=== PATIENT | female | born 1965 | race Caucasian/White ===

== ENCOUNTER 2018-11-04 04:09 | Inpatient (IN) | payer MEDICAID ==
[2018-11-04] VITALS (13 sets, daily range): BP systolic 88–118; BP diastolic 55–79
[~2018-11-04] VITALS: Ht 167.6 cm; Wt 99.4 kg
[2018-11-04] MEDS ORDERED: ipratropium/albuterol 3ml nebule NEB ONE (04:15)
[2018-11-04] MEDS ORDERED: methylPREDNISolone sod succ 125mg/2ml vial IV ONE (04:15)
[2018-11-04] MEDS ORDERED: LORazepam 2 mg/ml vial ONE (04:22)
--- NOTE | 2018-11-04 04:23 | NUR ---
RT, F[place], AT BEDSIDE. PT SUCTIONED VIA TRACH WITH MINIMAL OUT. SATS REMAIN 77-80% DR. DORSEY AWARE AND VERBAL RECEIVED FOR ATIVAN .5 MG X1.
[2018-11-04] MEDS ORDERED: LORazepam 2 mg/ml vial IV ONE ×2 (04:30→04:40)
--- NOTE | 2018-11-04 04:40 | NUR ---
PT MORE RELAXED AFTER ATIVAN - ON VENT, SETTINGS 100% FIO2, PEEP 15, SATS UP TO 86%
[2018-11-04] MEDS ORDERED: azithromycin/NS 500mg/250ml 250 ML IV ONE (04:45)
[2018-11-04] MEDS ORDERED: cefepime 1GM/NS ADD-VANTAGE 100 ML IV ONE (04:45)
[2018-11-04] MEDS ORDERED: vancomycin/NS 1 GM ADD-VANTAGE 250 ML IV ONE (04:45)
[2018-11-04] MEDS ORDERED: FENTANYL-0.9 % NACL/PF 100 ML IV PRN (04:47)
[2018-11-04] MEDS: midazolam 100mg in NS 100ml 100 ML IV PRN (05:04)
[2018-11-04 05:11] LABS: ABG BASE EXCESS 4.1 mmol/L (-2.0-3.0); ABG OXYGEN SATURATION 77.9 % (95-98); ABG PCO2 (T) 43.3 mmHg (35.0-45.0); ABG PH (T) 7.441 (7.350-7.450); ABG PO2 (T) 44.7 mmHg (83-108); FCOHb 0.2 % (0.5-1.5); FMetHb 0.2 % (0.3-1.12); FO2Hb 77.6 % (94-100); MINUTE VOLUME 11 L/min; PATIENT TEMPERATURE 36.3; PEEP 15 cm H2O; RESPIRATORY RATE 20 b/min; RESPIRATORY RATE (OBSERVED) 22 b/min; TIDAL VOLUME 400 mL; TOTAL HEMOGLOBIN 11.7 G/dl (12.0-16.0)
--- NOTE | 2018-11-04 05:13 | NUR ---
[place] EMERY AT BEDSIDE. 2ND PIV PLACED 20 G TO L FOOT. VERSED AND FENTANYL NOW INFUSING.
--- NOTE | 2018-11-04 05:43 | NUR ---
VERSED INCREASED TO 2.5MG/HR
[2018-11-04] MEDS ORDERED: acetaminophen 650mg rectal suppository RC PRN (05:45)
[2018-11-04] MEDS ORDERED: magnesium hydroxide 30ml (MOM) UD suspension PO PRN (05:45)
[2018-11-04] MEDS ORDERED: acetaminophen 325mg tablet PO PRN ×2 (05:45)
[2018-11-04 05:47] LABS: ALANINE AMINOTRANSFERASE 23 U/L (12-78); ALBUMIN 2.9 G/DL (3.4-5.0); ALBUMIN/GLOBULIN RATIO 0.8 (1.1-1.5); ALKALINE PHOSPHATASE 74 IU/L (46-116); ANION GAP 11 (8-16); ASPARTATE AMINO TRANSFERASE 16 U/L (10-37); BILIRUBIN,TOTAL 0.4 MG/DL (0.1-1.0); BLOOD UREA NITROGEN 30 MG/DL (7-18); BUN/CREATININE RATIO 21.3 (6.6-38.0); CALCIUM 8.9 MG/DL (8.5-10.1); CHLORIDE 105 MMOL/L (99-107); CREATININE 1.41 MG/DL (0.40-0.90); GLUCOSE 103 MG/DL (70-104); POTASSIUM 3.2 MMOL/L (3.5-5.1); SODIUM 145 MMOL/L (135-145); TOTAL CARBON DIOXIDE 29.1 MMOL/L (24-32); TOTAL PROTEIN 6.6 G/DL (6.4-8.2); eGFR 39 ML/MIN
[2018-11-04] MEDS ORDERED: albuterol 2.5 MG/3 ML nebule NEB PRN (05:55)
[2018-11-04] MEDS ORDERED: DOBUTamine-DoBUTrex 500mg/D5W 250 ML IV SCH (06:00)
--- NOTE | 2018-11-04 06:02 | NUR ---
March orders the titratable dobutamine to start at 3.5mcg/hr
[2018-11-04] MEDS ORDERED: GABA600T13 PO (06:06)
[2018-11-04] MEDS ORDERED: DULO-31 PO (06:06)
[2018-11-04] MEDS ORDERED: ALLO100T PO (06:06)
[2018-11-04] MEDS ORDERED: ESCI5TAB PO (06:06)
[2018-11-04] MEDS ORDERED: FURO40TA4 IV (06:06)
[2018-11-04] MEDS ORDERED: INSU100C10 SQ (06:14)
[2018-11-04] MEDS ORDERED: RIVA10TA PO (06:14)
[2018-11-04] MEDS ORDERED: PANT-47 PO (06:14)
[2018-11-04] MEDS ORDERED: LEVO25TA2 PO (06:14)
[2018-11-04] MEDS ORDERED: LACT1CAP65 PO (06:14)
[2018-11-04] MEDS ORDERED: PRAM0.5T3 PO (06:14)
[2018-11-04] MEDS ORDERED: MONT10TA24 PO (06:14)
--- NOTE | 2018-11-04 06:15 | NUR ---
FENTANYL DRIP ENDED AND WASTED WITH 2ND RN - PER MAR NEEDED TO END THE MEDICATION SECONDARY TO PT BEING ON ZYVOX - CURRENT ORDER FOR DOBUTAMINE DRIP CAN'T BE CARRIED OUT AT THIS TIME PT DOESN'T HAVE A CENTRAL LINE.
[2018-11-04] MEDS ORDERED: LINE600I8 IV (06:17)
[2018-11-04] MEDS ORDERED: HYDR28CR14 TOP (06:17)
[2018-11-04 06:18] LABS: BASOPHILS # (AUTO) 0.1 X10'3 (0-0.2); BASOPHILS % (AUTO) 1.1 % (0-1); EOSINOPHILS # (AUTO) 0.6 X10'3 (0-0.9); EOSINOPHILS % (AUTO) 6.3 % (0-6); HEMATOCRIT 33.8 % (35.0-45.0); HEMOGLOBIN 10.5 g/dl (12.0-16.0); LYMPHOCYTES # (AUTO) 3.2 X10'3 (1.1-4.8); LYMPHOCYTES % (AUTO) 33.4 % (21-51); MEAN CORPUSCULAR HEMOGLOBIN 21.7 PG (27.0-31.0); MEAN CORPUSCULAR HGB CONC 31.2 g/dL (33.0-36.5); MEAN CORPUSCULAR VOLUME 69.7 FL (78-98); MONOCYTES # (AUTO) 0.7 X10'3 (0-0.9); MONOCYTES % (AUTO) 7.5 % (2-12); NEUTROPHILS % (AUTO) 51.7 % (42-75); PLATELET COUNT 224 X10'3 (140-440); RED BLOOD COUNT 4.85 X10'6 (4.20-5.60); RED CELL DISTRIBUTION WIDTH 25.1 % (11.5-14.5); WHITE BLOOD COUNT 9.7 X10'3 (4.5-11.0)
[2018-11-04] MEDS ORDERED: DOCU283E2 RC (06:19)
[2018-11-04] MEDS ORDERED: ACET-2119 PO (06:19)
[2018-11-04] MEDS ORDERED: HYDR-4383 PO (06:20)
[2018-11-04] MEDS ORDERED: POLY17PO10 PO (06:23)
[2018-11-04] MEDS ORDERED: ONDA4VIA6 IV (06:23)
[2018-11-04] MEDS ORDERED: LORA1TAB PO (06:23)
[2018-11-04] MEDS ORDERED: ALB0.5UD IH (06:23)
[2018-11-04] MEDS ORDERED: ATR0.5NEB IH (06:23)
--- NOTE | 2018-11-04 06:26 | NUR ---
telephone order from March to start dobutamine at 3.5mcg thru a PIV
--- NOTE | 2018-11-04 06:50 | NUR ---
ASSUMED CARE OF PATIENT. PT IS ON FI02 100 SAT 78-80% BOTH ICU AND ER MD AWARE. DOBUTAMINE STARTED IN PIV PER MD.
[2018-11-04 07:27] LABS: PLATELET ESTIMATE NORMAL
[2018-11-04 07:28] LABS: ANISOCYTOSIS 3+; HYPOCHROMASIA 2+; POLYCHROMASIA FEW
[2018-11-04 07:29] LABS: MICROCYTOSIS 2+
[2018-11-04 07:31] LABS: ELLIPTOCYTES FEW
[2018-11-04] MEDS: ipratropium/albuterol 3ml nebule NEB SCH ×5 (07:31→23:08)
[2018-11-04] MEDS ORDERED: ESOMEPRAZOLE 40 MG VIAL IV SCH (08:00)
[2018-11-04] MEDS ORDERED: furosemide 10 MG/1 ML 10ml inj IV SCH (08:00)
[2018-11-04] MEDS ORDERED: acetylcysteine 200 MG/ml 4ml vial INH SCH (09:00)
[2018-11-04] MEDS: furosemide 40mg/4ml inj IV SCH ×2 (09:43→15:34)
[2018-11-04] MEDS: heparin, porcine 5000 units/ml vial SQ SCH ×2 (09:44→19:51)
[2018-11-04] MEDS: ESOMEPRAZOLE 40 MG VIAL IV SCH ×2 (10:36→19:51)
[2018-11-04] MEDS: linezolid 600mg/300ml PREMIX 300 ML IV SCH ×2 (11:06→22:01)
[2018-11-04] MEDS: methylPREDNISolone sod succ 125mg/2ml vial IV SCH ×2 (15:33→19:51)
[2018-11-04] MEDS: EPOPROSTENOL IV SCH (16:13)
[2018-11-04] MEDS: NORMAL SALINE IV SCH (16:13)
[2018-11-04 17:16] LABS: OXYGEN SATURATION (MIXED VEN) 64.8 % (60-80); PO2 MIXED VENOUS (TEMP COR) 29.9 mmHg (35-46)
[2018-11-04] MEDS: lactobacillus rhamnosus 10,000 MMU CELLS/CAPSULE PO SCH (19:52)
[2018-11-04] MEDS: potassium CL 10mEq/100ml bag 100 ML IV PRN ×3 (20:54→23:18)
[2018-11-04] MEDS: ondansetron/PF 4mg/2ml inj IV PRN (21:07)
[2018-11-05] VITALS (24 sets, daily range): BP systolic 89–133; BP diastolic 52–94
[2018-11-05] MEDS: furosemide 40mg/4ml inj IV SCH ×4 (00:13→21:23)
[2018-11-05] MEDS: potassium CL 10mEq/100ml bag 100 ML IV PRN (00:18)
[2018-11-05 01:06] LABS: OXYGEN SATURATION (MIXED VEN) 63.7 % (60-80); PO2 MIXED VENOUS (TEMP COR) 32.3 mmHg (35-46)
[2018-11-05] MEDS: EPOPROSTENOL IV SCH ×4 (02:00→22:35)
[2018-11-05] MEDS: NORMAL SALINE IV SCH ×4 (02:00→22:35)
[2018-11-05] MEDS: methylPREDNISolone sod succ 125mg/2ml vial IV SCH ×3 (02:08→13:40)
[2018-11-05 02:52] LABS: BASOPHILS % (AUTO) 0.3 % (0-1); EOSINOPHILS % (AUTO) 0 % (0-6); HEMATOCRIT 34.9 % (35.0-45.0); LYMPHOCYTES # (AUTO) 0.8 X10'3 (1.1-4.8); LYMPHOCYTES % (AUTO) 11.4 % (21-51); MEAN CORPUSCULAR HGB CONC 31.6 g/dL (33.0-36.5); MEAN CORPUSCULAR VOLUME 69.6 FL (78-98); MONOCYTES # (AUTO) 0.2 X10'3 (0-0.9); MONOCYTES % (AUTO) 2.8 % (2-12); NEUTROPHILS # (AUTO) 5.7 X10'3 (1.8-7.7); NEUTROPHILS % (AUTO) 85.5 % (42-75); PLATELET COUNT 200 X10'3 (140-440); RED BLOOD COUNT 5.01 X10'6 (4.20-5.60); RED CELL DISTRIBUTION WIDTH 26.5 % (11.5-14.5); WHITE BLOOD COUNT 6.6 X10'3 (4.5-11.0)
[2018-11-05] MEDS: HYDROmorphone 1 mg/ml syringe IV PRN ×3 (02:52→23:21)
[2018-11-05] MEDS: midazolam 100mg in NS 100ml 100 ML IV PRN ×2 (02:54→13:41)
[2018-11-05 03:10] LABS: ALANINE AMINOTRANSFERASE 26 U/L (12-78); ALBUMIN 3.1 G/DL (3.4-5.0); ALBUMIN/GLOBULIN RATIO 0.8 (1.1-1.5); ALKALINE PHOSPHATASE 77 IU/L (46-116); ANION GAP 9 (8-16); ASPARTATE AMINO TRANSFERASE 12 U/L (10-37); BILIRUBIN,TOTAL 0.6 MG/DL (0.1-1.0); BLOOD UREA NITROGEN 28 MG/DL (7-18); BUN/CREATININE RATIO 20.4 (6.6-38.0); CALCIUM 9.4 MG/DL (8.5-10.1); CHLORIDE 105 MMOL/L (99-107); CREATININE 1.37 MG/DL (0.40-0.90); GLUCOSE 165 MG/DL (70-104); PHOSPHORUS 4.3 MG/DL (2.3-4.5); POTASSIUM 3.4 MMOL/L (3.5-5.1); SODIUM 144 MMOL/L (135-145); TOTAL CARBON DIOXIDE 29.6 MMOL/L (24-32); TOTAL PROTEIN 6.9 G/DL (6.4-8.2); eGFR 41 ML/MIN
[2018-11-05 03:16] LABS: ANISOCYTOSIS 3+; ELLIPTOCYTES FEW; HYPOCHROMASIA 1+; MICROCYTOSIS 2+; PARTIAL THROMBOPLASTIN TIME 26 SECONDS (22-32); PLATELET ESTIMATE NORMAL
[2018-11-05] MEDS: ipratropium/albuterol 3ml nebule NEB SCH ×6 (03:19→23:49)
[2018-11-05 03:56] LABS: ABG BASE EXCESS 2.5 mmol/L (-2.0-3.0); ABG HCO3 26.3 mmol/L (22.0-26.0); ABG OXYGEN SATURATION 93.6 % (95-98); ABG PCO2 (T) 36.2 mmHg (35.0-45.0); ABG PH (T) 7.476 (7.350-7.450); ALLEN'S TEST Positive; FCOHb 0.3 % (0.5-1.5); FMetHb 0.2 % (0.3-1.12); FO2Hb 93.1 % (94-100); MINUTE VOLUME 9 L/min; PATIENT TEMPERATURE 36.1; PEEP 13 cm H2O; RESPIRATORY RATE 20 b/min; RESPIRATORY RATE (OBSERVED) 23 b/min; TIDAL VOLUME 400 mL; TOTAL HEMOGLOBIN 11.7 G/dl (12.0-16.0)
[2018-11-05 07:30] LABS: OXYGEN SATURATION (MIXED VEN) 68.4 % (60-80); PO2 MIXED VENOUS (TEMP COR) 35.9 mmHg (35-46)
[2018-11-05] MEDS: ESOMEPRAZOLE 40 MG VIAL IV SCH ×2 (08:11→21:23)
[2018-11-05] MEDS: heparin, porcine 5000 units/ml vial SQ SCH ×2 (08:11→21:24)
[2018-11-05] MEDS: lactobacillus rhamnosus 10,000 MMU CELLS/CAPSULE PO SCH ×2 (08:11→22:11)
[2018-11-05] MEDS: linezolid 600mg/300ml PREMIX 300 ML IV SCH ×2 (11:35→21:24)
[2018-11-05] MEDS ORDERED: ondansetron/PF 4mg/2ml inj IV PRN (18:40)
[2018-11-05] MEDS ORDERED: polyethylene glycol 3350 17gm powd pack PO PRN (18:40)
[2018-11-05] MEDS ORDERED: LORazepam 1 MG tablet PO PRN (18:40)
[2018-11-05] MEDS ORDERED: non-formulary drug (Albuterol Sulfate Nebs* (Proventil Nebs*) 2.5 MG) IH PRN (18:40)
[2018-11-05] MEDS ORDERED: ipratropium 0.5 MG/2.5ML nebule IH PRN (18:40)
[2018-11-05] MEDS ORDERED: albuterol 2.5 MG/3 ML nebule NEB PRN (19:00)
[2018-11-05] MEDS ORDERED: insulin Lispro (HumaLOG) vial - multi-dose SQ SCH (19:12)
[2018-11-05 19:26] LABS: OXYGEN SATURATION (MIXED VEN) 68.3 % (60-80); PO2 MIXED VENOUS (TEMP COR) 34.6 mmHg (35-46)
[2018-11-05] MEDS ORDERED: pantoprazole 40mg Tablet.DR PO SCH (20:00)
[2018-11-05] MEDS: hydrocortisone 1% cream 28gm TP SCH (20:00)
[2018-11-05] MEDS ORDERED: non-formulary drug (Lactobacillus Acidophilus (Probiotic) 1 CAP) PO SCH (20:00)
[2018-11-05] MEDS ORDERED: SODIUM CHLORIDE IV SCH (20:00)
[2018-11-05] MEDS ORDERED: LINEZOLID IV SCH (20:00)
[2018-11-05] MEDS ORDERED: linezolid 600mg/300ml PREMIX 300 ML IV SCH (20:00)
[2018-11-05] MEDS ORDERED: [UNRECOGNIZED DRUG - OTHER] IV SCH (20:00)
[2018-11-05] MEDS ORDERED: pramipexole 0.25mg tablet PO SCH (21:00)
[2018-11-05] MEDS ORDERED: PRAMIPEXOLE DI HCL PO SCH (21:00)
[2018-11-05] MEDS: methylPREDNISolone sod succ/PF 40mg inj. IV SCH (21:23)
[2018-11-05] MEDS: potassium Cl 20mEq/100mL bag 100 ML IV PRN ×2 (21:24→22:35)
[2018-11-05] MEDS: ondansetron/PF 4mg/2ml inj IV PRN (21:34)
[2018-11-05] MEDS: gabapentin 300mg capsule PO SCH (23:21)
[2018-11-06] VITALS (24 sets, daily range): BP systolic 93–122; BP diastolic 56–85
[2018-11-06] MEDS ORDERED: non-formulary drug (Gabapentin 1 TAB) PO SCH
[2018-11-06] MEDS: midazolam 100mg in NS 100ml 100 ML IV PRN ×3 (01:36→20:42)
[2018-11-06 01:40] LABS: OXYGEN SATURATION (MIXED VEN) 72.5 % (60-80); PO2 MIXED VENOUS (TEMP COR) 36.4 mmHg (35-46)
[2018-11-06] MEDS: furosemide 40mg/4ml inj IV SCH ×3 (02:54→17:22)
[2018-11-06] MEDS: methylPREDNISolone sod succ/PF 40mg inj. IV SCH ×4 (02:54→21:08)
[2018-11-06] MEDS: ipratropium/albuterol 3ml nebule NEB SCH ×6 (03:21→23:46)
[2018-11-06 03:28] LABS: BASOPHILS # (AUTO) 0.1 X10'3 (0-0.2); BASOPHILS % (AUTO) 0.5 % (0-1); EOSINOPHILS % (AUTO) 0 % (0-6); HEMATOCRIT 33.6 % (35.0-45.0); HEMOGLOBIN 10.4 g/dl (12.0-16.0); LYMPHOCYTES # (AUTO) 0.8 X10'3 (1.1-4.8); MEAN CORPUSCULAR HEMOGLOBIN 21.9 PG (27.0-31.0); MEAN CORPUSCULAR HGB CONC 31.1 g/dL (33.0-36.5); MEAN CORPUSCULAR VOLUME 70.3 FL (78-98); MEAN PLATELET VOLUME 8.5 FL (7.4-10.4); MONOCYTES # (AUTO) 0.6 X10'3 (0-0.9); MONOCYTES % (AUTO) 5.6 % (2-12); NEUTROPHILS # (AUTO) 9.8 X10'3 (1.8-7.7); NEUTROPHILS % (AUTO) 86.9 % (42-75); PLATELET COUNT 191 X10'3 (140-440); RED BLOOD COUNT 4.78 X10'6 (4.20-5.60); WHITE BLOOD COUNT 11.3 X10'3 (4.5-11.0)
[2018-11-06 03:42] LABS: ALANINE AMINOTRANSFERASE 24 U/L (12-78); ALBUMIN 3.1 G/DL (3.4-5.0); ALBUMIN/GLOBULIN RATIO 0.9 (1.1-1.5); ALKALINE PHOSPHATASE 66 IU/L (46-116); ANION GAP 9 (8-16); ASPARTATE AMINO TRANSFERASE 10 U/L (10-37); BILIRUBIN,TOTAL 0.5 MG/DL (0.1-1.0); BLOOD UREA NITROGEN 29 MG/DL (7-18); CALCIUM 9.5 MG/DL (8.5-10.1); CHLORIDE 108 MMOL/L (99-107); CREATININE 1.26 MG/DL (0.40-0.90); GLUCOSE 144 MG/DL (70-104); MAGNESIUM 2.1 MG/DL (1.5-2.4); PHOSPHORUS 3.4 MG/DL (2.3-4.5); POTASSIUM 3.2 MMOL/L (3.5-5.1); SODIUM 146 MMOL/L (135-145); TOTAL CARBON DIOXIDE 29.5 MMOL/L (24-32); TOTAL PROTEIN 6.4 G/DL (6.4-8.2); eGFR 45 ML/MIN
[2018-11-06] MEDS: NORMAL SALINE IV SCH ×6 (03:46→21:58)
[2018-11-06] MEDS: EPOPROSTENOL IV SCH ×6 (03:46→21:58)
[2018-11-06 03:47] LABS: PARTIAL THROMBOPLASTIN TIME 25 SECONDS (22-32)
[2018-11-06 04:11] LABS: ANISOCYTOSIS 3+; MICROCYTOSIS 1+; PLATELET ESTIMATE NORMAL; POLYCHROMASIA FEW; TARGET CELLS FEW
[2018-11-06 04:12] LABS: ELLIPTOCYTES FEW
[2018-11-06] MEDS: HYDROmorphone 1 mg/ml syringe IV PRN (05:38)
[2018-11-06 05:56] LABS: ABG BASE EXCESS 1.8 mmol/L (-2.0-3.0); ABG HCO3 25.9 mmol/L (22.0-26.0); ABG PCO2 (T) 37.6 mmHg (35.0-45.0); ABG PH (T) 7.453 (7.350-7.450); ABG PO2 (T) 55.4 mmHg (83-108); ALLEN'S TEST Positive; FCOHb 0.4 % (0.5-1.5); FMetHb 0.3 % (0.3-1.12); FO2Hb 88.4 % (94-100); MINUTE VOLUME 10 L/min; PATIENT TEMPERATURE 36.5; PEEP 11 cm H2O; RESPIRATORY RATE 20 b/min; RESPIRATORY RATE (OBSERVED) 20 b/min; TIDAL VOLUME 400 mL; TOTAL HEMOGLOBIN 12.2 G/dl (12.0-16.0)
--- NOTE | 2018-11-06 06:35 | NUR ---
Problems reprioritized. Patient report given, questions answered & plan of care reviewed with Lanie Good RN.
[2018-11-06] MEDS ORDERED: montelukast 10mg tablet PO SCH (08:00)
[2018-11-06] MEDS ORDERED: allopurinol 100mg tablet PO SCH (08:00)
[2018-11-06] MEDS ORDERED: rivaroxaban 10mg tablet PO SCH (08:00)
[2018-11-06] MEDS: K and/or MAG REPLACEMENT MC SCH (08:00)
[2018-11-06] MEDS ORDERED: ESCITALOPRAM OXALATE 10 MG PO SCH (08:00)
[2018-11-06] MEDS ORDERED: DOCUSATE SODIUM 283 MG RC SCH (08:00)
[2018-11-06] MEDS ORDERED: levoTHYROXINE 25mcg tablet PO SCH (08:00)
[2018-11-06] MEDS ORDERED: citalopram 20mg tablet PO SCH (08:00)
[2018-11-06] MEDS: gabapentin 300mg capsule PO SCH ×2 (08:06→15:10)
[2018-11-06] MEDS: lactobacillus rhamnosus 10,000 MMU CELLS/CAPSULE PO SCH (08:06)
[2018-11-06] MEDS: duloxetine 30mg CAPSULE.DR PO SCH (08:08)
[2018-11-06] MEDS: ESOMEPRAZOLE 40 MG VIAL IV SCH ×2 (08:09→21:58)
[2018-11-06] MEDS: heparin, porcine 5000 units/ml vial SQ SCH ×2 (08:11→21:08)
[2018-11-06] MEDS: potassium Cl 20mEq/100mL bag 100 ML IV PRN ×4 (08:14→20:01)
[2018-11-06 09:31] LABS: OXYGEN SATURATION (MIXED VEN) 78.3 % (60-80); PO2 MIXED VENOUS (TEMP COR) 42.3 mmHg (35-46)
[2018-11-06] MEDS: linezolid 600mg/300ml PREMIX 300 ML IV SCH ×2 (11:37→21:49)
[2018-11-06] MEDS: hydrocortisone 1% cream 28gm TP SCH ×2 (11:41→21:08)
[2018-11-06] MEDS ORDERED: rivaroxaban 20mg tablet PO SCH (14:48)
--- NOTE | 2018-11-06 16:24 | NUR ---
Tube feeding consult, discussed recommendations with bedside RN, recommend Vital High Protein with goal rate of 60 ml/hr and free water flush 200 ml q 4 hours. Patient is sedated. Admitted with respiratory failure and pulmonary HTN. Has a trach and is on mechanical ventilation. Will continue to follow. Recommend: 1. Continuous tube feedings per OG tube with Vital High protein at 60 ml/hr goal, start at 20 ml and increase by 20 ml q 8 hours to goal rate. Goal rate will provide total of 1440 ml volume, 1728 cals, 126 gm protein, and 1210 ml water. 2. Additional water flush 200 ml q 4 3. Prealbumin q Saturday and 4. bowel care as needed Addendum: 11/06/18 at [address] Amended: Links added.
[2018-11-06] MEDS ORDERED: magnesium hydroxide 30ml (MOM) UD suspension NG PRN (18:48)
[2018-11-06] MEDS ORDERED: polyethylene glycol 3350 17gm powd pack NG PRN (18:49)
[2018-11-06] MEDS ORDERED: insulin regular, human vial - multi-dose SQ SCH (18:55)
[2018-11-06] MEDS: pramipexole 0.25mg tablet NG SCH (21:09)
[2018-11-06] MEDS: lactobacillus rhamnosus 10,000 MMU CELLS/CAPSULE NG SCH (21:09)
[2018-11-07] VITALS (24 sets, daily range): BP systolic 91–127; BP diastolic 56–80
[2018-11-07] MEDS: furosemide 40mg/4ml inj IV SCH ×5 (00:03→23:38)
[2018-11-07] MEDS: gabapentin 300mg capsule NG SCH ×4 (00:04→23:37)
[2018-11-07] MEDS: methylPREDNISolone sod succ/PF 40mg inj. IV SCH ×3 (02:14→13:03)
[2018-11-07] MEDS: NORMAL SALINE IV SCH ×6 (02:15→23:50)
[2018-11-07] MEDS: EPOPROSTENOL IV SCH ×6 (02:15→23:50)
[2018-11-07 03:09] LABS: BASOPHILS % (AUTO) 0.1 % (0-1); EOSINOPHILS % (AUTO) 0 % (0-6); HEMATOCRIT 33.6 % (35.0-45.0); HEMOGLOBIN 10.3 g/dl (12.0-16.0); LYMPHOCYTES # (AUTO) 1.2 X10'3 (1.1-4.8); LYMPHOCYTES % (AUTO) 10.3 % (21-51); MEAN CORPUSCULAR HEMOGLOBIN 21.6 PG (27.0-31.0); MEAN CORPUSCULAR HGB CONC 30.8 g/dL (33.0-36.5); MEAN PLATELET VOLUME 8.3 FL (7.4-10.4); MONOCYTES # (AUTO) 0.7 X10'3 (0-0.9); MONOCYTES % (AUTO) 5.8 % (2-12); NEUTROPHILS # (AUTO) 9.7 X10'3 (1.8-7.7); NEUTROPHILS % (AUTO) 83.8 % (42-75); PLATELET COUNT 180 X10'3 (140-440); RED BLOOD COUNT 4.79 X10'6 (4.20-5.60); RED CELL DISTRIBUTION WIDTH 26.8 % (11.5-14.5); WHITE BLOOD COUNT 11.5 X10'3 (4.5-11.0)
[2018-11-07 03:15] LABS: PARTIAL THROMBOPLASTIN TIME 30 SECONDS (22-32)
[2018-11-07] MEDS: ipratropium/albuterol 3ml nebule NEB SCH ×4 (03:53→20:00)
[2018-11-07 04:01] LABS: ALANINE AMINOTRANSFERASE 23 U/L (12-78); ALBUMIN 3.1 G/DL (3.4-5.0); ALBUMIN/GLOBULIN RATIO 0.9 (1.1-1.5); ALKALINE PHOSPHATASE 63 IU/L (46-116); ANION GAP 10 (8-16); ASPARTATE AMINO TRANSFERASE 8 U/L (10-37); BILIRUBIN,TOTAL 0.6 MG/DL (0.1-1.0); BLOOD UREA NITROGEN 33 MG/DL (7-18); CALCIUM 9.6 MG/DL (8.5-10.1); CHLORIDE 109 MMOL/L (99-107); CREATININE 1.32 MG/DL (0.40-0.90); GLUCOSE 134 MG/DL (70-104); MAGNESIUM 2.3 MG/DL (1.5-2.4); PHOSPHORUS 3.4 MG/DL (2.3-4.5); POTASSIUM 3.5 MMOL/L (3.5-5.1); SODIUM 148 MMOL/L (135-145); TOTAL CARBON DIOXIDE 28.7 MMOL/L (24-32); TOTAL PROTEIN 6.4 G/DL (6.4-8.2); eGFR 42 ML/MIN
[2018-11-07 04:10] LABS: OXYGEN SATURATION (MIXED VEN) 66.4 % (60-80); PO2 MIXED VENOUS (TEMP COR) 31.7 mmHg (35-46)
[2018-11-07 04:22] LABS: ANISOCYTOSIS 3+; ELLIPTOCYTES 1+; HYPOCHROMASIA 1+; MICROCYTOSIS 1+; PLATELET ESTIMATE NORMAL; POLYCHROMASIA 1+
[2018-11-07 04:41] LABS: ABG BASE EXCESS 3.3 mmol/L (-2.0-3.0); ABG HCO3 26.5 mmol/L (22.0-26.0); ABG OXYGEN SATURATION 87.9 % (95-98); ABG PCO2 (T) 34.8 mmHg (35.0-45.0); ABG PH (T) 7.498 (7.350-7.450); ABG PO2 (T) 52.4 mmHg (83-108); ALLEN'S TEST Positive; FCOHb 0.3 % (0.5-1.5); FMetHb 0.2 % (0.3-1.12); FO2Hb 87.5 % (94-100); MINUTE VOLUME 11 L/min; PATIENT TEMPERATURE 36.5; PEEP 11 cm H2O; RESPIRATORY RATE 20 b/min; RESPIRATORY RATE (OBSERVED) 21 b/min; TIDAL VOLUME 400 mL; TOTAL HEMOGLOBIN 11.3 G/dl (12.0-16.0)
[2018-11-07] MEDS: midazolam 100mg in NS 100ml 100 ML IV PRN ×3 (04:56→23:37)
--- NOTE | 2018-11-07 06:15 | NUR ---
Patient in room ICU 2045. I have received report from ELIEL Dela Cruz and had the opportunity to ask questions and assume patient care.
--- NOTE | 2018-11-07 06:30 | NUR ---
Problems reprioritized. Patient report given, questions answered & plan of care reviewed with Syd JULIAN.
[2018-11-07] MEDS: K and/or MAG REPLACEMENT MC SCH (06:48)
[2018-11-07] MEDS: ESOMEPRAZOLE 40 MG VIAL IV SCH (07:44)
[2018-11-07] MEDS: heparin, porcine 5000 units/ml vial SQ SCH (07:47)
[2018-11-07] MEDS: citalopram 20mg tablet NG SCH (07:47)
[2018-11-07] MEDS: levoTHYROXINE 25mcg tablet NG SCH (07:48)
[2018-11-07] MEDS: rivaroxaban 20mg tablet NG SCH (07:48)
[2018-11-07] MEDS: montelukast 10mg tablet NG SCH (07:48)
[2018-11-07] MEDS: lactobacillus rhamnosus 10,000 MMU CELLS/CAPSULE NG SCH ×2 (07:48→20:13)
[2018-11-07] MEDS: allopurinol 100mg tablet NG SCH (07:48)
[2018-11-07] MEDS: duloxetine 30mg CAPSULE.DR PO SCH (07:49)
[2018-11-07] MEDS: hydrocortisone 1% cream 28gm TP SCH ×2 (07:49→20:13)
[2018-11-07] MEDS: HYDROmorphone 1 mg/ml syringe IV PRN ×2 (08:20→12:50)
[2018-11-07] MEDS: linezolid 600mg/300ml PREMIX 300 ML IV SCH (10:04)
--- NOTE | 2018-11-07 17:10 | NUR ---
11/07 LAST VENT CHECK AND TRACH CARE NOT DONE, PICC NURSE IN ROOM ATTEMPTING TO PUT LINE IN PT, ROOM IS CURRENTLY STERILE AND UNABLE TO ENTER PT ROOM. Addendum: 11/07/18 at 1711 by Tana Booker RT Amended: Links added.
--- NOTE | 2018-11-07 17:11 | NUR ---
patients friend kristi brought patients phone and pilot captain to bedside so when patient wakes up she will be able to communicate with her family. I educated them regarding belongings and placed the phone and pilot captain with her glasses.
--- NOTE | 2018-11-07 18:15 | NUR ---
Problems reprioritized. Patient report given, questions answered & plan of care reviewed with ELIEL Dela Cruz.
[2018-11-07] MEDS: pantoprazole 40 MG vial IV SCH (20:13)
[2018-11-07] MEDS: pramipexole 0.25mg tablet NG SCH (20:13)
[2018-11-08] VITALS (24 sets, daily range): BP systolic 90–118; BP diastolic 47–84
[2018-11-08] MEDS: ipratropium/albuterol 3ml nebule NEB SCH ×7 (00:02→23:12)
[2018-11-08] MEDS: EPOPROSTENOL IV SCH ×5 (03:07→21:23)
[2018-11-08] MEDS: NORMAL SALINE IV SCH ×5 (03:07→21:23)
[2018-11-08 03:48] LABS: ALANINE AMINOTRANSFERASE 21 U/L (12-78); ALBUMIN/GLOBULIN RATIO 0.9 (1.1-1.5); ALKALINE PHOSPHATASE 58 IU/L (46-116); ANION GAP 9 (8-16); ASPARTATE AMINO TRANSFERASE 4 U/L (10-37); BASOPHILS % (AUTO) 0.2 % (0-1); BILIRUBIN,TOTAL 0.6 MG/DL (0.1-1.0); BLOOD UREA NITROGEN 43 MG/DL (7-18); BUN/CREATININE RATIO 33.9 (6.6-38.0); CALCIUM 9.1 MG/DL (8.5-10.1); CHLORIDE 110 MMOL/L (99-107); CREATININE 1.27 MG/DL (0.40-0.90); EOSINOPHILS % (AUTO) 0 % (0-6); GLUCOSE 123 MG/DL (70-104); HEMATOCRIT 32.8 % (35.0-45.0); HEMOGLOBIN 10.1 g/dl (12.0-16.0); LYMPHOCYTES # (AUTO) 1.4 X10'3 (1.1-4.8); LYMPHOCYTES % (AUTO) 11.4 % (21-51); MAGNESIUM 2.7 MG/DL (1.5-2.4); MEAN CORPUSCULAR HEMOGLOBIN 21.6 PG (27.0-31.0); MEAN CORPUSCULAR HGB CONC 30.8 g/dL (33.0-36.5); MEAN CORPUSCULAR VOLUME 70.1 FL (78-98); MEAN PLATELET VOLUME 8.8 FL (7.4-10.4); MONOCYTES # (AUTO) 0.7 X10'3 (0-0.9); MONOCYTES % (AUTO) 5.8 % (2-12); NEUTROPHILS # (AUTO) 9.8 X10'3 (1.8-7.7); NEUTROPHILS % (AUTO) 82.6 % (42-75); PHOSPHORUS 4.3 MG/DL (2.3-4.5); PLATELET COUNT 140 X10'3 (140-440); POTASSIUM 3.4 MMOL/L (3.5-5.1); RED BLOOD COUNT 4.68 X10'6 (4.20-5.60); RED CELL DISTRIBUTION WIDTH 26.8 % (11.5-14.5); SODIUM 148 MMOL/L (135-145); TOTAL CARBON DIOXIDE 28.9 MMOL/L (24-32); TOTAL PROTEIN 6.2 G/DL (6.4-8.2); WHITE BLOOD COUNT 11.9 X10'3 (4.5-11.0); eGFR 44 ML/MIN
[2018-11-08 03:51] LABS: PARTIAL THROMBOPLASTIN TIME 28 SECONDS (22-32)
[2018-11-08 03:56] LABS: ABG BASE EXCESS 4.1 mmol/L (-2.0-3.0); ABG HCO3 27.4 mmol/L (22.0-26.0); ABG OXYGEN SATURATION 88.8 % (95-98); ABG PCO2 (T) 35.8 mmHg (35.0-45.0); ABG PH (T) 7.501 (7.350-7.450); ABG PO2 (T) 54.8 mmHg (83-108); ALLEN'S TEST Positive; FCOHb 0.3 % (0.5-1.5); FMetHb 0.2 % (0.3-1.12); FO2Hb 88.4 % (94-100); MINUTE VOLUME 8 L/min; PATIENT TEMPERATURE 36.8; PEEP 11 cm H2O; RESPIRATORY RATE 18 b/min; RESPIRATORY RATE (OBSERVED) 21 b/min; TIDAL VOLUME 400 mL; TOTAL HEMOGLOBIN 11.1 G/dl (12.0-16.0)
[2018-11-08 04:01] LABS: OXYGEN SATURATION (MIXED VEN) 68.8 % (60-80); PO2 MIXED VENOUS (TEMP COR) 33.9 mmHg (35-46)
[2018-11-08] MEDS: potassium Cl 20mEq/100mL bag 100 ML IV PRN ×2 (04:42→05:29)
[2018-11-08] MEDS: furosemide 40mg/4ml inj IV SCH ×3 (05:28→18:00)
[2018-11-08] MEDS: midazolam 100mg in NS 100ml 100 ML IV PRN ×2 (05:29→16:36)
--- NOTE | 2018-11-08 06:43 | NUR ---
Problems reprioritized. Patient report given, questions answered & plan of care reviewed with Min JULIAN.
[2018-11-08 07:01] LABS: ANISOCYTOSIS 3+; MICROCYTOSIS 1+; PLATELET ESTIMATE DECREASED; POLYCHROMASIA 1+
[2018-11-08 07:02] LABS: ELLIPTOCYTES 1+; POIKILOCYTOSIS 1+
[2018-11-08] MEDS: duloxetine 30mg CAPSULE.DR PO SCH (07:17)
[2018-11-08] MEDS: hydrocortisone 1% cream 28gm TP SCH ×2 (07:35→20:12)
[2018-11-08] MEDS: allopurinol 100mg tablet NG SCH (07:35)
[2018-11-08] MEDS: levoTHYROXINE 25mcg tablet NG SCH (07:35)
[2018-11-08] MEDS: pantoprazole 40 MG vial IV SCH ×2 (07:35→20:12)
[2018-11-08] MEDS: gabapentin 300mg capsule NG SCH ×2 (07:35→15:25)
[2018-11-08] MEDS: montelukast 10mg tablet NG SCH (07:35)
[2018-11-08] MEDS: rivaroxaban 20mg tablet NG SCH (07:35)
[2018-11-08] MEDS: lactobacillus rhamnosus 10,000 MMU CELLS/CAPSULE NG SCH ×2 (07:35→20:12)
[2018-11-08] MEDS: citalopram 20mg tablet NG SCH (07:35)
[2018-11-08] MEDS: K and/or MAG REPLACEMENT MC SCH (08:00)
--- NOTE | 2018-11-08 09:00 | NUR ---
Per Dr. Mckoy, orders for Daily Mixed Venous NOT q8H. Unable to cancel in [id number]; request pending.
--- NOTE | 2018-11-08 14:26 | NUR ---
SPO2 95-96%, orders to decrease PEEP from 9 to 7. No orders to recheck ABG until AM. Will continue to monitor.
--- NOTE | 2018-11-08 16:14 | NUR ---
PIV from [facility] not working; removed. Unable to obtain secondary IV access after multiple attempts from multiple RNs. Will continue to try and/or wait for Saturday for PICC nurse.
--- NOTE | 2018-11-08 18:19 | NUR ---
Problems reprioritized. Patient report given, questions answered & plan of care reviewed with Yasmeen JULIAN.
--- NOTE | 2018-11-08 18:20 | NUR ---
Patient in room ICU 2045. I have received report from garrett castañeda and had the opportunity to ask questions and assume patient care.
--- NOTE | 2018-11-08 19:30 | NUR ---
pt has a trach and is sedated. tube feed going at goal of 60. pt responds to voice and light pain. Lungs are clear and diminished. bowel sounds are normoactive. heels, elbows, coccyx are intact blanchable and free from breakdown. left ankle is red and warm to tough. vital signs are stable. no s/s of distress. will continue to monitor
[2018-11-08] MEDS: pramipexole 0.25mg tablet NG SCH (20:12)
[2018-11-08] MEDS: mineral oil/petrolatum ophthal oint EACHEYE SCH (20:13)
[2018-11-08 20:31] LABS: ABG BASE EXCESS 3.4 mmol/L (-2.0-3.0); ABG PCO2 (T) 32.8 mmHg (35.0-45.0); ABG PH (T) 7.517 (7.350-7.450); ABG PO2 (T) 53.2 mmHg (83-108); ALLEN'S TEST Positive; FCOHb 0.3 % (0.5-1.5); FMetHb 0.2 % (0.3-1.12); FO2Hb 87.6 % (94-100); MINUTE VOLUME 10 L/min; PEEP 7 cm H2O; RESPIRATORY RATE 18 b/min; RESPIRATORY RATE (OBSERVED) 24 b/min; TIDAL VOLUME 400 mL; TOTAL HEMOGLOBIN 11.3 G/dl (12.0-16.0)
--- NOTE | 2018-11-08 22:00 | NUR ---
pt is resting. vital signs are stable. no s/s of distress or change in condition noted. will continue to monitor.
[2018-11-09] VITALS (24 sets, daily range): BP systolic 93–116; BP diastolic 56–80
[2018-11-09] MEDS: gabapentin 300mg capsule NG SCH ×4 (00:15→23:51)
[2018-11-09] MEDS: furosemide 40mg/4ml inj IV SCH ×4 (00:15→18:00)
--- NOTE | 2018-11-09 01:00 | NUR ---
pt is resting. vital signs are stable. no s/s of distress or change in condition noted. will continue to monitor.
[2018-11-09] MEDS: EPOPROSTENOL IV SCH ×5 (02:52→20:27)
[2018-11-09] MEDS: NORMAL SALINE IV SCH ×5 (02:52→20:27)
[2018-11-09] MEDS: mineral oil/petrolatum ophthal oint EACHEYE SCH ×4 (02:52→20:24)
[2018-11-09] MEDS: midazolam 100mg in NS 100ml 100 ML IV PRN ×3 (02:53→23:41)
[2018-11-09] MEDS: ipratropium/albuterol 3ml nebule NEB SCH ×6 (03:00→23:24)
--- NOTE | 2018-11-09 03:00 | NUR ---
pt is resting. vital signs are stable. no s/s of distress or change in condition noted. will continue to monitor.
[2018-11-09 03:20] LABS: BASOPHILS % (AUTO) 0.2 % (0-1); EOSINOPHILS # (AUTO) 0.1 X10'3 (0-0.9); EOSINOPHILS % (AUTO) 0.5 % (0-6); HEMATOCRIT 32.8 % (35.0-45.0); HEMOGLOBIN 10.1 g/dl (12.0-16.0); LYMPHOCYTES # (AUTO) 1.5 X10'3 (1.1-4.8); LYMPHOCYTES % (AUTO) 11.7 % (21-51); MEAN CORPUSCULAR HEMOGLOBIN 21.7 PG (27.0-31.0); MEAN CORPUSCULAR HGB CONC 30.9 g/dL (33.0-36.5); MEAN CORPUSCULAR VOLUME 70.3 FL (78-98); MEAN PLATELET VOLUME 8.4 FL (7.4-10.4); MONOCYTES % (AUTO) 8.1 % (2-12); NEUTROPHILS # (AUTO) 10.2 X10'3 (1.8-7.7); NEUTROPHILS % (AUTO) 79.5 % (42-75); PLATELET COUNT 125 X10'3 (140-440); RED BLOOD COUNT 4.66 X10'6 (4.20-5.60); RED CELL DISTRIBUTION WIDTH 26.6 % (11.5-14.5); WHITE BLOOD COUNT 12.9 X10'3 (4.5-11.0)
[2018-11-09 03:31] LABS: PARTIAL THROMBOPLASTIN TIME 27 SECONDS (22-32)
[2018-11-09 03:34] LABS: ALANINE AMINOTRANSFERASE 20 U/L (12-78); ALBUMIN 2.9 G/DL (3.4-5.0); ALBUMIN/GLOBULIN RATIO 0.9 (1.1-1.5); ALKALINE PHOSPHATASE 54 IU/L (46-116); ANION GAP 9 (8-16); ASPARTATE AMINO TRANSFERASE 8 U/L (10-37); BILIRUBIN,TOTAL 0.7 MG/DL (0.1-1.0); BLOOD UREA NITROGEN 48 MG/DL (7-18); BUN/CREATININE RATIO 40.7 (6.6-38.0); CALCIUM 9.2 MG/DL (8.5-10.1); CHLORIDE 112 MMOL/L (99-107); CREATININE 1.18 MG/DL (0.40-0.90); GLUCOSE 132 MG/DL (70-104); MAGNESIUM 2.9 MG/DL (1.5-2.4); PHOSPHORUS 4.6 MG/DL (2.3-4.5); POTASSIUM 3.4 MMOL/L (3.5-5.1); SODIUM 151 MMOL/L (135-145); TOTAL CARBON DIOXIDE 29.8 MMOL/L (24-32); eGFR 48 ML/MIN
[2018-11-09] MEDS: potassium Cl 20mEq/100mL bag 100 ML IV PRN ×2 (04:06→05:26)
[2018-11-09 05:00] LABS: ABG BASE EXCESS 4.6 mmol/L (-2.0-3.0); ABG HCO3 27.1 mmol/L (22.0-26.0); ABG OXYGEN SATURATION 87.8 % (95-98); ABG PH (T) 7.533 (7.350-7.450); ABG PO2 (T) 53.9 mmHg (83-108); ALLEN'S TEST Positive; FCOHb 0.3 % (0.5-1.5); FMetHb 0.2 % (0.3-1.12); FO2Hb 87.4 % (94-100); MINUTE VOLUME 9 L/min; PEEP 7 cm H2O; RESPIRATORY RATE 18 b/min; RESPIRATORY RATE (OBSERVED) 23 b/min; TIDAL VOLUME 400 mL; TOTAL HEMOGLOBIN 11.2 G/dl (12.0-16.0)
[2018-11-09 06:05] LABS: ANISOCYTOSIS 3+; HYPOCHROMASIA 1+; MICROCYTOSIS 1+; PLATELET ESTIMATE DECREASED; POLYCHROMASIA 1+
[2018-11-09 06:06] LABS: ELLIPTOCYTES 1+
--- NOTE | 2018-11-09 06:30 | NUR ---
Patient in room ICU 2045. I have received report from ELIEL Arana and had the opportunity to ask questions and assume patient care.
[2018-11-09] MEDS: duloxetine 30mg CAPSULE.DR PO SCH (08:00)
[2018-11-09] MEDS: pantoprazole 40 MG vial IV SCH ×2 (08:13→20:25)
[2018-11-09] MEDS: montelukast 10mg tablet NG SCH (08:13)
[2018-11-09] MEDS: citalopram 20mg tablet NG SCH (08:13)
[2018-11-09] MEDS: allopurinol 100mg tablet NG SCH (08:13)
[2018-11-09] MEDS: levoTHYROXINE 25mcg tablet NG SCH (08:13)
[2018-11-09] MEDS: lactobacillus rhamnosus 10,000 MMU CELLS/CAPSULE NG SCH ×2 (08:14→20:25)
[2018-11-09] MEDS: hydrocortisone 1% cream 28gm TP SCH ×2 (08:14→20:24)
[2018-11-09] MEDS: rivaroxaban 20mg tablet NG SCH (08:14)
--- NOTE | 2018-11-09 08:30 | NUR ---
Gastric residual 400 mL. 300 reinstilled. TF restarted.
--- NOTE | 2018-11-09 09:53 | NUR ---
Gastric residual 450mL. 300 mL reinstilled. TF restarted.
--- NOTE | 2018-11-09 10:16 | NUR ---
Informed Dr. Mckoy of high tube feed residuals, lack of bowel sounds, and pt's bowel patterns as well as previous gastric residual patterns. Dr. Mckoy examined pt. No additional orders received at this time.
--- NOTE | 2018-11-09 11:50 | NUR ---
reassessment: Pt NGTF remains at goal. GRV sharp increase from 10ml to 400ml and now 450ml upon recheck. LBM 11/08 and not receiving opioids per EMR. MD is aware today per RN. Pt nimo xiaop in place; may benefit from post-pyloric feeds given regular BMs for improved tolerance. Na up to 151 receiving 200ml Q4 water flushes. Pending transfer to [facility] for further care per MD note. Will continue to monitor. Recommend: 1. Continuous tube feedings per OG tube with Vital High protein at 60 ml/hr goal, start at 20 ml and increase by 20 ml q 8 hours to goal rate. Goal rate will provide total of 1440 ml volume, 1728 cals, 126 gm protein, and 1210 ml water. 2. Additional water flush 200 ml q 4 3. Prealbumin q Saturday and 4. consider post-pyloric feeds IF residuals >500 as well as promotility agent per MD approval per protocol Addendum: 11/09/18 at [address] Amended: Links added.
--- NOTE | 2018-11-09 12:03 | NUR ---
500 mL gastric residual aspirated. 300 mL reinstilled. Discussed with RD. Tube feed resumed.
[2018-11-09 12:05] LABS: OXYGEN SATURATION (MIXED VEN) 72.4 % (60-80); PO2 MIXED VENOUS (TEMP COR) 37.3 mmHg (35-46)
--- NOTE | 2018-11-09 18:26 | NUR ---
Problems reprioritized. Patient report given, questions answered & plan of care reviewed with ELIEL Montgomery.
[2018-11-09] MEDS: pramipexole 0.25mg tablet NG SCH (20:25)
[2018-11-10] VITALS (25 sets, daily range): BP systolic 85–119; BP diastolic 52–86
[2018-11-10] MEDS: furosemide 40mg/4ml inj IV SCH ×5 (00:14→23:56)
[2018-11-10] MEDS: EPOPROSTENOL IV SCH ×6 (00:38→22:49)
[2018-11-10] MEDS: NORMAL SALINE IV SCH ×6 (00:38→22:49)
--- NOTE | 2018-11-10 02:34 | NUR ---
Spoke with Sandro Waldron NP re: high residuals with tube feeding. residuals have been high since the afternoon of 11/09. Tube feeding held tonight since 2034. Patient's current residual of 225ml. Order for 5mg Reglan IV once.
[2018-11-10] MEDS ORDERED: metoclopramide 5 mg/ml inj IV ONE (02:40)
[2018-11-10] MEDS: mineral oil/petrolatum ophthal oint EACHEYE SCH ×4 (02:53→20:13)
[2018-11-10 03:38] LABS: BASOPHILS % (AUTO) 0.3 % (0-1); EOSINOPHILS # (AUTO) 0.3 X10'3 (0-0.9); EOSINOPHILS % (AUTO) 2.1 % (0-6); HEMATOCRIT 34.1 % (35.0-45.0); HEMOGLOBIN 10.4 g/dl (12.0-16.0); LYMPHOCYTES # (AUTO) 1.5 X10'3 (1.1-4.8); LYMPHOCYTES % (AUTO) 10.8 % (21-51); MEAN CORPUSCULAR HEMOGLOBIN 21.6 PG (27.0-31.0); MEAN CORPUSCULAR HGB CONC 30.6 g/dL (33.0-36.5); MEAN CORPUSCULAR VOLUME 70.6 FL (78-98); MEAN PLATELET VOLUME 8.9 FL (7.4-10.4); MONOCYTES # (AUTO) 1.3 X10'3 (0-0.9); MONOCYTES % (AUTO) 9.4 % (2-12); NEUTROPHILS # (AUTO) 10.8 X10'3 (1.8-7.7); NEUTROPHILS % (AUTO) 77.4 % (42-75); PLATELET COUNT 119 X10'3 (140-440); RED BLOOD COUNT 4.83 X10'6 (4.20-5.60); RED CELL DISTRIBUTION WIDTH 26.4 % (11.5-14.5)
[2018-11-10 03:48] LABS: ALANINE AMINOTRANSFERASE 22 U/L (12-78); ALBUMIN 2.8 G/DL (3.4-5.0); ALBUMIN/GLOBULIN RATIO 0.8 (1.1-1.5); ALKALINE PHOSPHATASE 57 IU/L (46-116); ANION GAP 10 (8-16); ASPARTATE AMINO TRANSFERASE 3 U/L (10-37); BILIRUBIN,TOTAL 0.9 MG/DL (0.1-1.0); BLOOD UREA NITROGEN 43 MG/DL (7-18); BUN/CREATININE RATIO 39.8 (6.6-38.0); CALCIUM 9.3 MG/DL (8.5-10.1); CHLORIDE 116 MMOL/L (99-107); CREATININE 1.08 MG/DL (0.40-0.90); GLUCOSE 113 MG/DL (70-104); PARTIAL THROMBOPLASTIN TIME 29 SECONDS (22-32); PHOSPHORUS 4.8 MG/DL (2.3-4.5); POTASSIUM 3.4 MMOL/L (3.5-5.1); TOTAL PROTEIN 6.3 G/DL (6.4-8.2); eGFR 53 ML/MIN
[2018-11-10 03:51] LABS: SODIUM 157 MMOL/L (135-145)
[2018-11-10] MEDS: ipratropium/albuterol 3ml nebule NEB SCH ×6 (03:54→23:27)
[2018-11-10 04:00] LABS: ABG BASE EXCESS 6.8 mmol/L (-2.0-3.0); ABG HCO3 29.5 mmol/L (22.0-26.0); ABG OXYGEN SATURATION 88.3 % (95-98); ABG PCO2 (T) 35.9 mmHg (35.0-45.0); ABG PH (T) 7.534 (7.350-7.450); ABG PO2 (T) 55.8 mmHg (83-108); ALLEN'S TEST Positive; FCOHb 0.3 % (0.5-1.5); FMetHb 0.1 % (0.3-1.12); FO2Hb 87.9 % (94-100); MINUTE VOLUME 8 L/min; PATIENT TEMPERATURE 37.4; PEEP 7 cm H2O; RESPIRATORY RATE 18 b/min; RESPIRATORY RATE (OBSERVED) 19 b/min; TIDAL VOLUME 400 mL; TOTAL HEMOGLOBIN 11.3 G/dl (12.0-16.0)
--- NOTE | 2018-11-10 04:11 | NUR ---
Critical Sodium 157. Called to Sandro Waldron NP. Advised that patient had not been getting her free water flushes today secondary to high residuals. Next residual check is right now. Per Sandro Waldron NP: hopefully her residuals will allow for the free water flushes to resume. If residuals continue to be high, call back.
[2018-11-10] MEDS: potassium Cl 20mEq/100mL bag 100 ML IV PRN ×2 (04:16→05:33)
--- NOTE | 2018-11-10 06:21 | NUR ---
Problems reprioritized. Patient report given, questions answered & plan of care reviewed with ELIEL Armas.
--- NOTE | 2018-11-10 06:30 | NUR ---
Patient in room ICU 2045. I have received report from ELIEL Montgomery and had the opportunity to ask questions and assume patient care.
[2018-11-10 07:37] LABS: ANISOCYTOSIS 3+; ELLIPTOCYTES 1+; HYPOCHROMASIA 1+; MICROCYTOSIS 1+; NUCLEATED RED BLOOD CELLS 1 /100WBC (0-0); PLATELET ESTIMATE DECREASED; POLYCHROMASIA 1+; TOTAL CELLS COUNTED 100
[2018-11-10] MEDS: duloxetine 30mg CAPSULE.DR PO SCH (08:00)
[2018-11-10] MEDS: pantoprazole 40 MG vial IV SCH ×2 (08:13→20:23)
[2018-11-10] MEDS: citalopram 20mg tablet NG SCH (08:13)
[2018-11-10] MEDS: gabapentin 300mg capsule NG SCH ×2 (08:14→16:15)
[2018-11-10] MEDS: lactobacillus rhamnosus 10,000 MMU CELLS/CAPSULE NG SCH ×2 (08:14→20:23)
[2018-11-10] MEDS: montelukast 10mg tablet NG SCH (08:14)
[2018-11-10] MEDS: levoTHYROXINE 25mcg tablet NG SCH (08:14)
[2018-11-10] MEDS: hydrocortisone 1% cream 28gm TP SCH ×2 (08:15→20:13)
[2018-11-10] MEDS: allopurinol 100mg tablet NG SCH (08:15)
[2018-11-10] MEDS: rivaroxaban 20mg tablet NG SCH (08:15)
[2018-11-10] MEDS ORDERED: desmopressin 0.1mg/ml nasal spray 5ml btl NS ONE (10:10)
[2018-11-10] MEDS: dextrose 5%-water 1,000 ML IV SCH (10:26)
[2018-11-10] MEDS ORDERED: metoclopramide 5 mg/ml inj IV PRN (11:10)
--- NOTE | 2018-11-10 11:10 | NUR ---
Reglan ordered per Dr. Martínez's order after confirming with Pharmacist Antoine that there are no interactions with Flolan.
[2018-11-10] MEDS: midazolam 100mg in NS 100ml 100 ML IV PRN (14:47)
[2018-11-10] MEDS ORDERED: ceftazidime 1000mg in D5W 50ml 50 ML IV SCH (16:00)
[2018-11-10 16:25] LABS: CLARITY,URINE SLIGHTLY CLOUDY (Clear); COLOR,URINE YELLOW (Yellow); GLUCOSE, URINE NEGATIVE (Neg); KETONES,URINE NEGATIVE (Neg); LEUKOCYTE ESTERASE ,URINE LARGE (Neg); NITRITES, URINE NEGATIVE (Neg); OCCULT BLOOD,URINE LARGE (Neg); PROTEIN,URINE TRACE mg/dl (Neg); UROBILINOGEN,URINE 0.2 E.U/dL (0.2-1.0)
[2018-11-10] MEDS: cefTAZidime inj. 1 GM in normal saline 100ml IV soln 100 ML IV SCH (16:26)
[2018-11-10 16:29] LABS: UA COLLECTION TYPE FOLEY CATH
[2018-11-10 16:33] LABS: BACTERIA,URINE 4+ /HPF (Neg); MUCUS STRANDS NONE SEEN /LPF (Neg); RBC,URINE 20-50 /HPF (0-2); RENAL CELLS, URINE MODERATE /HPF; SQUAMOUS EPITHELIAL CELL,UR NONE SEEN /LPF (FEW); WBC,URINE TNTC /HPF (0-4)
[2018-11-10 16:34] LABS: WBC CLUMPS,URINE MODERATE /HPF (NEGATIVE); YEAST MODERATE /HPF (NEGATIVE)
[2018-11-10] MEDS: acetaminophen 325mg tablet NG PRN (16:34)
--- NOTE | 2018-11-10 18:00 | NUR ---
Pt temperature began to climb, BS 187, WBC 14.3. Called doctor Mauricio, received order for panculture and ABX coverage. Pt given tylenol, she responded well. Tmax 38.2
--- NOTE | 2018-11-10 18:31 | NUR ---
Problems reprioritized. Patient report given, questions answered & plan of care reviewed with ELIEL Montgomery.
[2018-11-10] MEDS: pramipexole 0.25mg tablet NG SCH (20:23)
--- NOTE | 2018-11-10 21:32 | NUR ---
Patient in room ICU 2045. I have received report from Valentina castañeda and had the opportunity to ask questions and assume patient care.
--- NOTE | 2018-11-10 21:33 | NUR ---
Problems reprioritized. Patient report given, questions answered & plan of care reviewed with ELIEL Arana.
--- NOTE | 2018-11-10 23:56 | NUR ---
pt bp 90/56 hr 97. lasix held for decreased bp based on specified parameters in emar
[2018-11-11] VITALS (23 sets, daily range): BP systolic 94–120; BP diastolic 57–80
[2018-11-11] MEDS: gabapentin 300mg capsule NG SCH ×3 (00:37→15:38)
[2018-11-11] MEDS: cefTAZidime inj. 1 GM in normal saline 100ml IV soln 100 ML IV SCH ×3 (00:38→15:28)
[2018-11-11] MEDS: mineral oil/petrolatum ophthal oint EACHEYE SCH ×4 (01:36→19:34)
[2018-11-11 02:32] LABS: BASOPHILS % (AUTO) 0.3 % (0-1); EOSINOPHILS # (AUTO) 0.6 X10'3 (0-0.9); EOSINOPHILS % (AUTO) 3.7 % (0-6); HEMATOCRIT 32.5 % (35.0-45.0); HEMOGLOBIN 10.1 g/dl (12.0-16.0); LYMPHOCYTES # (AUTO) 1.6 X10'3 (1.1-4.8); LYMPHOCYTES % (AUTO) 10.4 % (21-51); MEAN CORPUSCULAR HEMOGLOBIN 21.9 PG (27.0-31.0); MEAN CORPUSCULAR HGB CONC 31.1 g/dL (33.0-36.5); MEAN CORPUSCULAR VOLUME 70.4 FL (78-98); MEAN PLATELET VOLUME 8.2 FL (7.4-10.4); MONOCYTES # (AUTO) 1.5 X10'3 (0-0.9); MONOCYTES % (AUTO) 9.7 % (2-12); NEUTROPHILS # (AUTO) 11.4 X10'3 (1.8-7.7); NEUTROPHILS % (AUTO) 75.9 % (42-75); PLATELET COUNT 91 X10'3 (140-440); RED BLOOD COUNT 4.62 X10'6 (4.20-5.60); RED CELL DISTRIBUTION WIDTH 26.6 % (11.5-14.5)
[2018-11-11 02:46] LABS: PARTIAL THROMBOPLASTIN TIME 31 SECONDS (22-32)
[2018-11-11 02:49] LABS: ALANINE AMINOTRANSFERASE 24 U/L (12-78); ALBUMIN 2.6 G/DL (3.4-5.0); ALBUMIN/GLOBULIN RATIO 0.7 (1.1-1.5); ALKALINE PHOSPHATASE 67 IU/L (46-116); ANION GAP 8 (8-16); ASPARTATE AMINO TRANSFERASE 10 U/L (10-37); BILIRUBIN,TOTAL 0.9 MG/DL (0.1-1.0); BLOOD UREA NITROGEN 44 MG/DL (7-18); BUN/CREATININE RATIO 39.6 (6.6-38.0); CALCIUM 9.1 MG/DL (8.5-10.1); CHLORIDE 117 MMOL/L (99-107); CREATININE 1.11 MG/DL (0.40-0.90); GLUCOSE 124 MG/DL (70-104); MAGNESIUM 2.9 MG/DL (1.5-2.4); PHOSPHORUS 4.5 MG/DL (2.3-4.5); POTASSIUM 3.3 MMOL/L (3.5-5.1); TOTAL CARBON DIOXIDE 30.9 MMOL/L (24-32); TOTAL PROTEIN 6.2 G/DL (6.4-8.2); eGFR 52 ML/MIN
[2018-11-11 02:51] LABS: SODIUM 156 MMOL/L (135-145)
[2018-11-11] MEDS: dextrose 5%-water 1,000 ML IV SCH ×2 (02:55→19:35)
[2018-11-11 03:23] LABS: ANISOCYTOSIS 3+; ELLIPTOCYTES FEW; HYPOCHROMASIA 1+; MICROCYTOSIS 1+; PLATELET ESTIMATE DECREASED; SCHISTOCYTES FEW
[2018-11-11] MEDS: ipratropium/albuterol 3ml nebule NEB SCH ×6 (03:46→23:01)
[2018-11-11] MEDS: NORMAL SALINE IV SCH ×5 (04:02→22:22)
[2018-11-11] MEDS: EPOPROSTENOL IV SCH ×5 (04:02→22:22)
[2018-11-11 04:11] LABS: ABG OXYGEN SATURATION 88.8 % (95-98); ABG PCO2 (T) 36.8 mmHg (35.0-45.0); ABG PH (T) 7.516 (7.350-7.450); ABG PO2 (T) 58.5 mmHg (83-108); ALLEN'S TEST Positive; FCOHb 0.3 % (0.5-1.5); FMetHb 0.3 % (0.3-1.12); FO2Hb 88.3 % (94-100); MINUTE VOLUME 9 L/min; PATIENT TEMPERATURE 37.7; PEEP 7 cm H2O; RESPIRATORY RATE 18 b/min; RESPIRATORY RATE (OBSERVED) 20 b/min; TIDAL VOLUME 400 mL; TOTAL HEMOGLOBIN 11.2 G/dl (12.0-16.0)
[2018-11-11] MEDS: furosemide 40mg/4ml inj IV SCH ×3 (06:00→17:43)
--- NOTE | 2018-11-11 06:39 | NUR ---
Patient in room ICU 2045. I have received report from Yasmeen JULIAN and had the opportunity to ask questions and assume patient care. Addendum: 11/11/18 at 0640 by Eileen Parra RN Amended: Links added.
[2018-11-11] MEDS: pantoprazole 40 MG vial IV SCH ×2 (07:20→19:34)
[2018-11-11] MEDS: potassium Cl 20mEq/100mL bag 100 ML IV PRN ×2 (07:22→08:34)
[2018-11-11] MEDS: lactobacillus rhamnosus 10,000 MMU CELLS/CAPSULE NG SCH ×2 (07:24→19:34)
[2018-11-11] MEDS: allopurinol 100mg tablet NG SCH (07:25)
[2018-11-11] MEDS: montelukast 10mg tablet NG SCH (07:25)
[2018-11-11] MEDS: levoTHYROXINE 25mcg tablet NG SCH (07:25)
[2018-11-11] MEDS: rivaroxaban 20mg tablet NG SCH (07:25)
[2018-11-11] MEDS: duloxetine 30mg CAPSULE.DR PO SCH (07:26)
[2018-11-11] MEDS: citalopram 20mg tablet NG SCH (07:26)
[2018-11-11] MEDS: hydrocortisone 1% cream 28gm TP SCH ×2 (08:00→19:34)
[2018-11-11] MEDS: acetaminophen 325mg tablet NG PRN (10:33)
--- NOTE | 2018-11-11 10:39 | NUR ---
Pt. has Flolan infusing. It was reported in shift report that pt. had one bag left (which is currently infusing). Pharmacy is aware of the urgent necessity of having this med readily available and is working on obtaining med per charge nurse and assistant community manager. Dr. Martínez is aware that pt. is on her last bag.
--- NOTE | 2018-11-11 10:50 | NUR ---
Update from community facilitator Levi: next bag of Flolan should be available when next dose is due.
--- NOTE | 2018-11-11 11:20 | NUR ---
Follow up: Current shortage of vital high protein, OK to substitute with glucerna 1.2, d/w RN and dietary. Addendum: 11/11/18 at [address] Amended: Links added.
--- NOTE | 2018-11-11 12:06 | NUR ---
RT informed RN that pt. has a cuff leak and the trach should be changed out by Dr. Reynaga prior to transferring pt. to [place].
--- NOTE | 2018-11-11 12:29 | NUR ---
Pharmacy checking on the status of the next dose of Flonan. Will let Dr. Montes De Oca know about the pt's cuff leak when he becomes available.
--- NOTE | 2018-11-11 12:51 | NUR ---
Pharmacist stated they are mixing the Flolan now and will bring it to floor when it is ready.
--- NOTE | 2018-11-11 13:09 | NUR ---
Bag of Flolan that was brought up to nurse is unable to be used per Fredis in pharmacy. Waiting for new bag. Charge nurse aware.
[2018-11-11] MEDS ORDERED: EPOPROSTENOL IV SCH (13:15)
[2018-11-11] MEDS ORDERED: [UNRECOGNIZED DRUG - OTHER] IV SCH (13:15)
--- NOTE | 2018-11-11 13:31 | NUR ---
New bag of Ayesha provided, scanned and hung.
--- NOTE | 2018-11-11 14:24 | NUR ---
Lucerna tube feeding hanging now, due to dietary being out of Vital HP. Tabular Typist Niecy confirmed Lucerna is a suitable replacement. Addendum: 11/11/18 at 1426 by Jessica Urias RN Amended: Links added.
--- NOTE | 2018-11-11 15:28 | NUR ---
RT dropped peep down to [address] Montes De Oca. Sp02 88-90%.
--- NOTE | 2018-11-11 18:21 | NUR ---
Problems reprioritized. Patient report given, questions answered & plan of care reviewed with Yasmeen JULIAN.
--- NOTE | 2018-11-11 18:23 | NUR ---
Patient in room ICU 2045. I have received report and had the opportunity to ask questions and assume patient care.
[2018-11-11] MEDS: pramipexole 0.25mg tablet NG SCH (19:39)
--- NOTE | 2018-11-11 20:00 | NUR ---
Patient in room ICU 2045. I have received report from Yasmeen JULIAN and had the opportunity to ask questions and assume patient care for remainder of shift.
--- NOTE | 2018-11-11 20:02 | NUR ---
Problems reprioritized. Patient report given, questions answered & plan of care reviewed with kayla castañeda.
[2018-11-12] VITALS (24 sets, daily range): BP systolic 92–123; BP diastolic 49–81
[2018-11-12] MEDS: dextrose 5%-water 1,000 ML IV SCH ×2 (00:13→19:17)
[2018-11-12] MEDS: cefTAZidime inj. 1 GM in normal saline 100ml IV soln 100 ML IV SCH ×3 (00:14→15:33)
[2018-11-12] MEDS: furosemide 40mg/4ml inj IV SCH ×4 (00:17→17:00)
[2018-11-12] MEDS: gabapentin 300mg capsule NG SCH ×3 (00:18→15:38)
[2018-11-12] MEDS: midazolam 100mg in NS 100ml 100 ML IV PRN (00:58)
[2018-11-12] MEDS: EPOPROSTENOL IV SCH ×5 (02:07→19:18)
[2018-11-12] MEDS: NORMAL SALINE IV SCH ×5 (02:07→19:18)
[2018-11-12] MEDS: mineral oil/petrolatum ophthal oint EACHEYE SCH ×4 (02:07→20:00)
[2018-11-12 03:22] LABS: HEMOGLOBIN 9.7 g/dl (12.0-16.0); MEAN CORPUSCULAR HGB CONC 30.5 g/dL (33.0-36.5); MONOCYTES # (AUTO) 1.2 X10'3 (0-0.9)
[2018-11-12 03:23] LABS: BASOPHILS % (AUTO) 0.3 % (0-1); EOSINOPHILS # (AUTO) 0.7 X10'3 (0-0.9); EOSINOPHILS % (AUTO) 4.9 % (0-6); HEMATOCRIT 31.6 % (35.0-45.0); LYMPHOCYTES # (AUTO) 1.6 X10'3 (1.1-4.8); LYMPHOCYTES % (AUTO) 11.4 % (21-51); MEAN CORPUSCULAR HEMOGLOBIN 21.8 PG (27.0-31.0); MEAN CORPUSCULAR VOLUME 71.2 FL (78-98); MEAN PLATELET VOLUME 8.6 FL (7.4-10.4); MONOCYTES % (AUTO) 9.1 % (2-12); NEUTROPHILS # (AUTO) 10.1 X10'3 (1.8-7.7); NEUTROPHILS % (AUTO) 74.3 % (42-75); PLATELET COUNT 93 X10'3 (140-440); RED BLOOD COUNT 4.44 X10'6 (4.20-5.60); RED CELL DISTRIBUTION WIDTH 27.8 % (11.5-14.5); WHITE BLOOD COUNT 13.6 X10'3 (4.5-11.0)
[2018-11-12] MEDS: ipratropium/albuterol 3ml nebule NEB SCH ×6 (03:24→23:41)
[2018-11-12] MEDS ORDERED: VANCOMYCIN LEVEL IV ONE ×2 (03:30→22:30)
[2018-11-12 03:35] LABS: ABG BASE EXCESS 4.9 mmol/L (-2.0-3.0); ABG HCO3 27.9 mmol/L (22.0-26.0); ABG OXYGEN SATURATION 93.4 % (95-98); ABG PCO2 (T) 36.6 mmHg (35.0-45.0); ABG PH (T) 7.503 (7.350-7.450); ABG PO2 (T) 72.3 mmHg (83-108); ALLEN'S TEST Positive; FCOHb 0.3 % (0.5-1.5); FMetHb 0.1 % (0.3-1.12); MINUTE VOLUME 8 L/min; PATIENT TEMPERATURE 37.7; PEEP 5 cm H2O; RESPIRATORY RATE 16 b/min; RESPIRATORY RATE (OBSERVED) 20 b/min; TIDAL VOLUME 400 mL; TOTAL HEMOGLOBIN 10.7 G/dl (12.0-16.0)
[2018-11-12 03:37] LABS: ALANINE AMINOTRANSFERASE 31 U/L (12-78); ALBUMIN 2.4 G/DL (3.4-5.0); ALBUMIN/GLOBULIN RATIO 0.6 (1.1-1.5); ALKALINE PHOSPHATASE 78 IU/L (46-116); ANION GAP 8 (8-16); ASPARTATE AMINO TRANSFERASE 14 U/L (10-37); BLOOD UREA NITROGEN 36 MG/DL (7-18); BUN/CREATININE RATIO 34.6 (6.6-38.0); CALCIUM 9.5 MG/DL (8.5-10.1); CHLORIDE 115 MMOL/L (99-107); CREATININE 1.04 MG/DL (0.40-0.90); GLUCOSE 119 MG/DL (70-104); MAGNESIUM 2.7 MG/DL (1.5-2.4); PHOSPHORUS 4.8 MG/DL (2.3-4.5); POTASSIUM 3.7 MMOL/L (3.5-5.1); SODIUM 153 MMOL/L (135-145); TOTAL CARBON DIOXIDE 30.4 MMOL/L (24-32); TOTAL PROTEIN 6.3 G/DL (6.4-8.2); eGFR 56 ML/MIN
[2018-11-12 03:49] LABS: PARTIAL THROMBOPLASTIN TIME 32 SECONDS (22-32)
[2018-11-12 03:51] LABS: ANISOCYTOSIS 3+; BANDS% (MANUAL) 2 % (0-10); EOSINOPHILS % (MANUAL) 6 % (0-6); HYPOCHROMASIA 1+; LARGE PLATELETS FEW; LYMPHOCYTES % (MANUAL) 5 % (21-51); METAMYLEOCYTES% (MANUAL) 1 % (0-0); MICROCYTOSIS 1+; MONOCYTES % (MANUAL) 9 % (2-12); NEUTROPHILS % (MANUAL) 77 % (42-75); NUCLEATED RED BLOOD CELLS 1 /100WBC (0-0); PLATELET ESTIMATE DECREASED; TOTAL CELLS COUNTED 100
--- NOTE | 2018-11-12 06:25 | NUR ---
Patient in room ICU 2045. I have received report from Malou Wu RN and had the opportunity to ask questions and assume patient care. Patient currently on ventilator at 80 FiO2. Set rate of Flolin. Awaiting transfer to [facility]
--- NOTE | 2018-11-12 06:38 | NUR ---
Problems reprioritized. Patient report given, questions answered & plan of care reviewed with Nilton JULIAN.
[2018-11-12] MEDS: citalopram 20mg tablet NG SCH (07:49)
[2018-11-12] MEDS: rivaroxaban 20mg tablet NG SCH (07:49)
[2018-11-12] MEDS: montelukast 10mg tablet NG SCH (07:49)
[2018-11-12] MEDS: duloxetine 30mg CAPSULE.DR PO SCH (07:49)
[2018-11-12] MEDS: levoTHYROXINE 25mcg tablet NG SCH (07:49)
[2018-11-12] MEDS: allopurinol 100mg tablet NG SCH (07:49)
[2018-11-12] MEDS: lactobacillus rhamnosus 10,000 MMU CELLS/CAPSULE NG SCH ×2 (07:49→21:25)
[2018-11-12] MEDS: pantoprazole 40 MG vial IV SCH (07:50)
[2018-11-12] MEDS: hydrocortisone 1% cream 28gm TP SCH ×2 (07:50→21:26)
--- NOTE | 2018-11-12 10:35 | NUR ---
Dr. Montes De Oca and mulitdiscplinary team rounded on patient. Was told by case management that additional paper work regarding insurance needs to be sent to [facility] and approved before [facility] will accept patient.
[2018-11-12] MEDS: vancomycin/NS 1 GM ADD-VANTAGE 250 ML IV SCH ×2 (11:26→22:54)
[2018-11-12] MEDS: acetaminophen 325mg tablet NG PRN ×2 (11:34→22:54)
--- NOTE | 2018-11-12 11:52 | NUR ---
reassessment: Pt tolerating TF at goal. LBM 11/11. Na down to 153 from 156 prior w/ 200ml Q4 water flushes. Will continue to monitor. Recommend: 1. Continuous tube feedings per NG tube with Vital High protein at 60 ml/hr goal, start at 20 ml and increase by 20 ml q 8 hours to goal rate. Goal rate will provide total of 1440 ml volume, 1728 cals, 126 gm protein, and 1210 ml water. 2. Additional water flush 200 ml q 4 3. Prealbumin q Saturday and 4. consider post-pyloric feeds IF residuals >500 as well as promotility agent per MD approval per protocol Addendum: 11/12/18 at [address] Amended: Links added.
[2018-11-12] MEDS: sucralfate 1gm/10ml UD suspension PO SCH ×2 (15:38→21:27)
--- NOTE | 2018-11-12 18:25 | NUR ---
Problems reprioritized. Patient report given, questions answered & plan of care reviewed with Lanie Rivera RN.
[2018-11-12] MEDS: pramipexole 0.25mg tablet NG SCH (21:27)
[2018-11-13] VITALS (23 sets, daily range): BP systolic 77–118; BP diastolic 45–81
[2018-11-13] MEDS: gabapentin 300mg capsule NG SCH ×4 (00:27→23:39)
[2018-11-13] MEDS: NORMAL SALINE IV SCH ×7 (00:27→21:32)
[2018-11-13] MEDS: EPOPROSTENOL IV SCH ×7 (00:27→21:32)
[2018-11-13] MEDS: furosemide 40mg/4ml inj IV SCH ×5 (00:27→23:39)
[2018-11-13] MEDS: cefTAZidime inj. 1 GM in normal saline 100ml IV soln 100 ML IV SCH (00:34)
[2018-11-13] MEDS: ceftazidime 1000mg in D5W 50ml 50 ML IV SCH ×4 (00:34→23:38)
[2018-11-13] MEDS: mineral oil/petrolatum ophthal oint EACHEYE SCH ×4 (02:24→21:31)
[2018-11-13 03:13] LABS: BASOPHILS % (AUTO) 0.3 % (0-1); EOSINOPHILS # (AUTO) 0.5 X10'3 (0-0.9); MEAN PLATELET VOLUME 8.6 FL (7.4-10.4)
[2018-11-13 03:15] LABS: EOSINOPHILS % (AUTO) 3.1 % (0-6); HEMATOCRIT 31.6 % (35.0-45.0); HEMOGLOBIN 9.7 g/dl (12.0-16.0); LYMPHOCYTES # (AUTO) 1.8 X10'3 (1.1-4.8); LYMPHOCYTES % (AUTO) 11.8 % (21-51); MEAN CORPUSCULAR HEMOGLOBIN 21.6 PG (27.0-31.0); MEAN CORPUSCULAR HGB CONC 30.7 g/dL (33.0-36.5); MEAN CORPUSCULAR VOLUME 70.3 FL (78-98); MONOCYTES # (AUTO) 1.7 X10'3 (0-0.9); MONOCYTES % (AUTO) 11.4 % (2-12); NEUTROPHILS # (AUTO) 11.1 X10'3 (1.8-7.7); NEUTROPHILS % (AUTO) 73.4 % (42-75); PLATELET COUNT 121 X10'3 (140-440); RED CELL DISTRIBUTION WIDTH 26.7 % (11.5-14.5); WHITE BLOOD COUNT 15.1 X10'3 (4.5-11.0)
[2018-11-13 03:25] LABS: PARTIAL THROMBOPLASTIN TIME 31 SECONDS (22-32)
[2018-11-13 03:28] LABS: ALANINE AMINOTRANSFERASE 37 U/L (12-78); ALBUMIN 2.3 G/DL (3.4-5.0); ALBUMIN/GLOBULIN RATIO 0.6 (1.1-1.5); ALKALINE PHOSPHATASE 98 IU/L (46-116); ANION GAP 9 (8-16); ASPARTATE AMINO TRANSFERASE 15 U/L (10-37); BLOOD UREA NITROGEN 32 MG/DL (7-18); BUN/CREATININE RATIO 35.2 (6.6-38.0); CALCIUM 8.9 MG/DL (8.5-10.1); CHLORIDE 110 MMOL/L (99-107); CREATININE 0.91 MG/DL (0.40-0.90); GLUCOSE 195 MG/DL (70-104); MAGNESIUM 2.3 MG/DL (1.5-2.4); PHOSPHORUS 3.6 MG/DL (2.3-4.5); SODIUM 148 MMOL/L (135-145); TOTAL CARBON DIOXIDE 29.5 MMOL/L (24-32); TOTAL PROTEIN 6.2 G/DL (6.4-8.2); eGFR 65 ML/MIN
[2018-11-13] MEDS: ipratropium/albuterol 3ml nebule NEB SCH ×6 (03:31→23:09)
[2018-11-13 03:46] LABS: ABG BASE EXCESS 5.2 mmol/L (-2.0-3.0); ABG HCO3 28.1 mmol/L (22.0-26.0); ABG OXYGEN SATURATION 86.9 % (95-98); ABG PCO2 (T) 36.8 mmHg (35.0-45.0); ABG PH (T) 7.504 (7.350-7.450); ABG PO2 (T) 55.9 mmHg (83-108); ALLEN'S TEST Positive; FCOHb 0.3 % (0.5-1.5); FMetHb 0.1 % (0.3-1.12); FO2Hb 86.6 % (94-100); MINUTE VOLUME 11 L/min; PATIENT TEMPERATURE 38.1; PEEP 5 cm H2O; RESPIRATORY RATE 16 b/min; RESPIRATORY RATE (OBSERVED) 26 b/min; TIDAL VOLUME 400 mL; TOTAL HEMOGLOBIN 10.9 G/dl (12.0-16.0)
[2018-11-13] MEDS: potassium Cl 20mEq/100mL bag 100 ML IV PRN ×4 (03:48→07:29)
[2018-11-13] MEDS: midazolam 100mg in NS 100ml 100 ML IV PRN (04:17)
[2018-11-13] MEDS: acetaminophen 325mg tablet NG PRN (05:59)
--- NOTE | 2018-11-13 06:32 | NUR ---
Patient in room ICU 2045. I have received report from Lanie Rivera RN and had the opportunity to ask questions and assume patient care.
[2018-11-13] MEDS: sucralfate 1gm/10ml UD suspension PO SCH ×4 (07:00→21:30)
[2018-11-13] MEDS: levoTHYROXINE 25mcg tablet NG SCH (08:23)
[2018-11-13] MEDS: montelukast 10mg tablet NG SCH (08:23)
[2018-11-13] MEDS: duloxetine 30mg CAPSULE.DR PO SCH (08:23)
[2018-11-13] MEDS: lactobacillus rhamnosus 10,000 MMU CELLS/CAPSULE NG SCH ×2 (08:23→21:30)
[2018-11-13] MEDS: allopurinol 100mg tablet NG SCH (08:24)
[2018-11-13] MEDS: rivaroxaban 20mg tablet NG SCH (08:24)
[2018-11-13] MEDS: citalopram 20mg tablet NG SCH (08:24)
[2018-11-13] MEDS: hydrocortisone 1% cream 28gm TP SCH ×2 (08:25→21:30)
--- NOTE | 2018-11-13 08:40 | NUR ---
Dr. Montes De Oca rounded on patient. Ordered versed to be weaned and to start precedex, as tolerated.
[2018-11-13] MEDS: dexmedetomidin/NS 400mcg/100ml 100 ML IV SCH ×3 (10:02→20:08)
--- NOTE | 2018-11-13 10:30 | NUR ---
Dr. Montes De Oca and multidisciplinary team rounded on patient. Patient started on Diamox to continue diuresing. Continuing to wean versed and use precedex instead. Continuing to wean FiO2 on ventilator. Patient insurances is accepted by [facility]. Now MD to MD acceptance must take place.
[2018-11-13] MEDS: vancomycin/NS 1 GM ADD-VANTAGE 250 ML IV SCH ×2 (11:27→23:00)
--- NOTE | 2018-11-13 11:58 | NUR ---
Tube feed residual was 625 mL. 300 mL reinstilled in NG tube, flushed with 30 mL of water. Tube feed to be held for 2 hours. Will continue to monitor.
--- NOTE | 2018-11-13 12:46 | NUR ---
Alerted by Dr. Montes De Oca that he has contacted a Dr. Hernandez at [facility]. This MD would like to review reports and notes before accepting patient. Alerted case management (Marcia) of this need. She has been given fax number of [phone] to fax this information to.
[2018-11-13] MEDS: acetaZOLAMIDE IV 500mg inj IV SCH ×2 (12:51→16:55)
--- NOTE | 2018-11-13 13:20 | NUR ---
Verbal consent obtained with Joce Merino (S.O.) at phone number [phone] at 1320. Consent confirmed with second RN, Ana Cason. GFR 65, BUN 32, Creatinine 0.91.
[2018-11-13] MEDS ORDERED: iohexol 350MG/ML 100ml bottle IV ONE (14:20)
--- NOTE | 2018-11-13 15:30 | NUR ---
Patient taken to CT for CT chest with contrast. Away from room with author, RT and transporter for x1 hour. Patient switched to mobile ventilator, tolerated well.
--- NOTE | 2018-11-13 18:42 | NUR ---
Problems reprioritized. Patient report given, questions answered & plan of care reviewed with Joaquín JULIAN.
[2018-11-13] MEDS: dextrose 5%-water 1,000 ML IV SCH (19:57)
[2018-11-13] MEDS: pramipexole 0.25mg tablet NG SCH (21:30)
[2018-11-13] MEDS ORDERED: VANCOMYCIN LEVEL IV ONE (22:30)
[2018-11-14] VITALS (24 sets, daily range): BP systolic 85–104; BP diastolic 53–70
[2018-11-14] MEDS: acetaZOLAMIDE IV 500mg inj IV SCH ×2 (01:39→08:01)
[2018-11-14] MEDS: EPOPROSTENOL IV SCH ×6 (02:18→22:36)
[2018-11-14] MEDS: mineral oil/petrolatum ophthal oint EACHEYE SCH ×4 (02:18→20:24)
[2018-11-14] MEDS: NORMAL SALINE IV SCH ×6 (02:18→22:36)
[2018-11-14 02:53] LABS: BASOPHILS # (AUTO) 0.1 X10'3 (0-0.2); BASOPHILS % (AUTO) 0.7 % (0-1); EOSINOPHILS # (AUTO) 0.5 X10'3 (0-0.9); EOSINOPHILS % (AUTO) 3.7 % (0-6); HEMATOCRIT 30.8 % (35.0-45.0); HEMOGLOBIN 9.4 g/dl (12.0-16.0); LYMPHOCYTES # (AUTO) 1.8 X10'3 (1.1-4.8); LYMPHOCYTES % (AUTO) 13.5 % (21-51); MEAN CORPUSCULAR HEMOGLOBIN 21.6 PG (27.0-31.0); MEAN CORPUSCULAR HGB CONC 30.5 g/dL (33.0-36.5); MEAN CORPUSCULAR VOLUME 70.8 FL (78-98); MEAN PLATELET VOLUME 8.8 FL (7.4-10.4); MONOCYTES # (AUTO) 1.6 X10'3 (0-0.9); MONOCYTES % (AUTO) 12.1 % (2-12); NEUTROPHILS # (AUTO) 9.4 X10'3 (1.8-7.7); PLATELET COUNT 156 X10'3 (140-440); RED BLOOD COUNT 4.35 X10'6 (4.20-5.60); WHITE BLOOD COUNT 13.4 X10'3 (4.5-11.0)
[2018-11-14] MEDS: ipratropium/albuterol 3ml nebule NEB SCH ×6 (03:04→23:10)
[2018-11-14 03:16] LABS: ABG BASE EXCESS 2.6 mmol/L (-2.0-3.0); ABG HCO3 25.6 mmol/L (22.0-26.0); ABG OXYGEN SATURATION 90.2 % (95-98); ABG PCO2 (T) 35.2 mmHg (35.0-45.0); ABG PH (T) 7.483 (7.350-7.450); ALLEN'S TEST Positive; FCOHb 0.3 % (0.5-1.5); FMetHb 0.2 % (0.3-1.12); FO2Hb 89.7 % (94-100); MINUTE VOLUME 11 L/min; PEEP 5 cm H2O; RESPIRATORY RATE 16 b/min; RESPIRATORY RATE (OBSERVED) 27 b/min; TIDAL VOLUME 400 mL; TOTAL HEMOGLOBIN 10.5 G/dl (12.0-16.0)
[2018-11-14 03:18] LABS: ALANINE AMINOTRANSFERASE 56 U/L (12-78); ALBUMIN 2.4 G/DL (3.4-5.0); ALBUMIN/GLOBULIN RATIO 0.6 (1.1-1.5); ALKALINE PHOSPHATASE 113 IU/L (46-116); ANION GAP 5 (8-16); ASPARTATE AMINO TRANSFERASE 30 U/L (10-37); BILIRUBIN,TOTAL 0.8 MG/DL (0.1-1.0); BLOOD UREA NITROGEN 36 MG/DL (7-18); BUN/CREATININE RATIO 38.7 (6.6-38.0); CALCIUM 9.4 MG/DL (8.5-10.1); CHLORIDE 110 MMOL/L (99-107); CREATININE 0.93 MG/DL (0.40-0.90); GLUCOSE 115 MG/DL (70-104); MAGNESIUM 2.6 MG/DL (1.5-2.4); PHOSPHORUS 4.3 MG/DL (2.3-4.5); POTASSIUM 3.2 MMOL/L (3.5-5.1); SODIUM 147 MMOL/L (135-145); TOTAL CARBON DIOXIDE 31.6 MMOL/L (24-32); TOTAL PROTEIN 6.6 G/DL (6.4-8.2); eGFR 64 ML/MIN
[2018-11-14 03:22] LABS: HYPOCHROMASIA 1+; PLATELET ESTIMATE NORMAL
[2018-11-14 03:23] LABS: ANISOCYTOSIS 3+; ELLIPTOCYTES 1+; MICROCYTOSIS 1+
[2018-11-14 03:38] LABS: PARTIAL THROMBOPLASTIN TIME 29 SECONDS (22-32)
[2018-11-14] MEDS: potassium Cl 20mEq/100mL bag 100 ML IV PRN ×4 (04:02→18:58)
[2018-11-14] MEDS: dexmedetomidin/NS 400mcg/100ml 100 ML IV SCH ×3 (04:03→22:37)
[2018-11-14] MEDS: furosemide 40mg/4ml inj IV SCH ×3 (05:43→17:00)
--- NOTE | 2018-11-14 06:35 | NUR ---
Patient in room ICU 2045. I have received report from Joaquín JULIAN and had the opportunity to ask questions and assume patient care.
--- NOTE | 2018-11-14 06:41 | NUR ---
Problems reprioritized. Patient report given, questions answered & plan of care reviewed with Nilton JULIAN.
[2018-11-14] MEDS: ceftazidime 1000mg in D5W 50ml 50 ML IV SCH ×2 (07:51→15:10)
[2018-11-14] MEDS: montelukast 10mg tablet NG SCH (07:59)
[2018-11-14] MEDS: rivaroxaban 20mg tablet NG SCH (07:59)
[2018-11-14] MEDS: allopurinol 100mg tablet NG SCH (07:59)
[2018-11-14] MEDS: sucralfate 1gm/10ml UD suspension PO SCH ×4 (07:59→20:24)
[2018-11-14] MEDS: citalopram 20mg tablet NG SCH (07:59)
[2018-11-14] MEDS: gabapentin 300mg capsule NG SCH ×2 (08:00→15:10)
[2018-11-14] MEDS: hydrocortisone 1% cream 28gm TP SCH ×2 (08:00→20:28)
[2018-11-14] MEDS: acetaminophen 325mg tablet NG PRN ×2 (08:00→17:01)
[2018-11-14] MEDS: lactobacillus rhamnosus 10,000 MMU CELLS/CAPSULE NG SCH ×2 (08:00→20:24)
[2018-11-14] MEDS: duloxetine 30mg CAPSULE.DR PO SCH (08:00)
[2018-11-14] MEDS: levoTHYROXINE 25mcg tablet NG SCH (08:00)
[2018-11-14] MEDS: ondansetron/PF 4mg/2ml inj IV PRN (08:30)
[2018-11-14] MEDS: LORazepam 1 MG tablet NG PRN (08:30)
--- NOTE | 2018-11-14 09:40 | NUR ---
Dr. Montes De Oca rounded on patient. Patient continuing to clear mentation collier. Awaiting bed assignment from [facility].
[2018-11-14] MEDS: vancomycin inj. 750 MG in normal saline 250ml IV soln 250 ML IV SCH ×2 (10:07→22:36)
[2018-11-14] MEDS: HYDROmorphone 1 mg/ml syringe IV PRN ×2 (12:57→20:25)
[2018-11-14] MEDS: dextrose 5%-water 1,000 ML IV SCH (14:44)
--- NOTE | 2018-11-14 18:25 | NUR ---
Problems reprioritized. Patient report given, questions answered & plan of care reviewed with Lanie Rivera RN.
[2018-11-14] MEDS: pramipexole 0.25mg tablet NG SCH (20:24)
[2018-11-15] VITALS (24 sets, daily range): BP systolic 85–120; BP diastolic 48–78
[2018-11-15] MEDS: ceftazidime 1000mg in D5W 50ml 50 ML IV SCH ×3 (00:07→15:47)
[2018-11-15] MEDS: furosemide 40mg/4ml inj IV SCH ×5 (00:08→23:23)
[2018-11-15] MEDS: gabapentin 300mg capsule NG SCH ×4 (00:08→23:23)
[2018-11-15] MEDS: LORazepam 1 MG tablet NG PRN ×2 (00:38→17:06)
[2018-11-15] MEDS: mineral oil/petrolatum ophthal oint EACHEYE SCH ×4 (02:33→20:19)
[2018-11-15] MEDS: NORMAL SALINE IV SCH ×6 (02:33→23:25)
[2018-11-15] MEDS: EPOPROSTENOL IV SCH ×6 (02:33→23:25)
[2018-11-15] MEDS: ipratropium/albuterol 3ml nebule NEB SCH ×6 (02:52→23:14)
[2018-11-15 03:36] LABS: ABG HCO3 25.2 mmol/L (22.0-26.0); ABG OXYGEN SATURATION 88.5 % (95-98); ABG PCO2 (T) 39.8 mmHg (35.0-45.0); ABG PH (T) 7.422 (7.350-7.450); ABG PO2 (T) 59.4 mmHg (83-108); ALLEN'S TEST Positive; FCOHb 0.3 % (0.5-1.5); FMetHb 0.3 % (0.3-1.12); MINUTE VOLUME 10 L/min; PATIENT TEMPERATURE 37.6; PEEP 5 cm H2O; RESPIRATORY RATE 16 b/min; RESPIRATORY RATE (OBSERVED) 22 b/min; TIDAL VOLUME 400 mL; TOTAL HEMOGLOBIN 10.3 G/dl (12.0-16.0)
[2018-11-15 03:37] LABS: BASOPHILS % (AUTO) 0.4 % (0-1); EOSINOPHILS # (AUTO) 0.4 X10'3 (0-0.9); EOSINOPHILS % (AUTO) 3.3 % (0-6); HEMATOCRIT 29.2 % (35.0-45.0); HEMOGLOBIN 9.1 g/dl (12.0-16.0); LYMPHOCYTES # (AUTO) 1.9 X10'3 (1.1-4.8); LYMPHOCYTES % (AUTO) 15.6 % (21-51); MEAN CORPUSCULAR HGB CONC 31.2 g/dL (33.0-36.5); MEAN CORPUSCULAR VOLUME 70.4 FL (78-98); MEAN PLATELET VOLUME 8.3 FL (7.4-10.4); MONOCYTES # (AUTO) 0.9 X10'3 (0-0.9); MONOCYTES % (AUTO) 7.7 % (2-12); NEUTROPHILS # (AUTO) 8.7 X10'3 (1.8-7.7); PLATELET COUNT 190 X10'3 (140-440); RED BLOOD COUNT 4.14 X10'6 (4.20-5.60); RED CELL DISTRIBUTION WIDTH 25.9 % (11.5-14.5); WHITE BLOOD COUNT 11.9 X10'3 (4.5-11.0)
[2018-11-15 03:40] LABS: PARTIAL THROMBOPLASTIN TIME 31 SECONDS (22-32)
[2018-11-15 04:04] LABS: ALANINE AMINOTRANSFERASE 57 U/L (12-78); ALBUMIN 2.2 G/DL (3.4-5.0); ALBUMIN/GLOBULIN RATIO 0.5 (1.1-1.5); ALKALINE PHOSPHATASE 115 IU/L (46-116); ANION GAP 10 (8-16); ASPARTATE AMINO TRANSFERASE 25 U/L (10-37); BILIRUBIN,TOTAL 0.7 MG/DL (0.1-1.0); BLOOD UREA NITROGEN 38 MG/DL (7-18); BUN/CREATININE RATIO 41.3 (6.6-38.0); CALCIUM 9.4 MG/DL (8.5-10.1); CHLORIDE 108 MMOL/L (99-107); CREATININE 0.92 MG/DL (0.40-0.90); GLUCOSE 134 MG/DL (70-104); MAGNESIUM 2.4 MG/DL (1.5-2.4); PHOSPHORUS 4.6 MG/DL (2.3-4.5); POTASSIUM 3.4 MMOL/L (3.5-5.1); SODIUM 145 MMOL/L (135-145); TOTAL CARBON DIOXIDE 27.4 MMOL/L (24-32); TOTAL PROTEIN 6.4 G/DL (6.4-8.2); eGFR 64 ML/MIN
[2018-11-15] MEDS: potassium Cl 20mEq/100mL bag 100 ML IV PRN ×2 (05:55→08:18)
[2018-11-15] MEDS: dextrose 5%-water 1,000 ML IV SCH (06:55)
[2018-11-15] MEDS: lactobacillus rhamnosus 10,000 MMU CELLS/CAPSULE NG SCH ×2 (07:29→20:19)
[2018-11-15] MEDS: rivaroxaban 20mg tablet NG SCH (07:29)
[2018-11-15] MEDS: levoTHYROXINE 25mcg tablet NG SCH (07:29)
[2018-11-15] MEDS: sucralfate 1gm/10ml UD suspension PO SCH ×4 (07:29→20:19)
[2018-11-15] MEDS: citalopram 20mg tablet NG SCH (07:29)
[2018-11-15] MEDS: allopurinol 100mg tablet NG SCH (07:29)
[2018-11-15] MEDS: montelukast 10mg tablet NG SCH (07:29)
[2018-11-15] MEDS: HYDROmorphone 1 mg/ml syringe IV PRN ×3 (07:29→21:28)
[2018-11-15] MEDS: hydrocortisone 1% cream 28gm TP SCH ×2 (07:30→20:19)
[2018-11-15] MEDS: duloxetine 30mg CAPSULE.DR PO SCH (07:44)
[2018-11-15] MEDS: dexmedetomidin/NS 400mcg/100ml 100 ML IV SCH (09:57)
[2018-11-15] MEDS: vancomycin inj. 750 MG in normal saline 250ml IV soln 250 ML IV SCH ×2 (11:32→23:02)
--- NOTE | 2018-11-15 11:39 | NUR ---
DM consult: Pt with T2DM current A1c 7.0. Pt remains intubated at this time and not appropriate for DM education. Will provide DM education with referral to outpatient DM class prior to discharge if appropriate. Pt continues receiving TF at goal rate and tolerating with low GRV 5-130 mL. Pt currently documented with mild nausea, receiving IV Zofran PRN. Pt pending transfer to [facility] for further care of pulmonary HTN per MD notes. LBM 11/15. Will continue to follow. Recommend: 1. Continuous tube feedings per NG tube with Vital High protein at 60 ml/hr goal, start at 20 ml and increase by 20 ml q 8 hours to goal rate. Goal rate will provide total of 1440 ml volume, 1728 cals, 126 gm protein, and 1210 ml water. 2. Additional water flush 200 ml q 4 3. Prealbumin q Saturday and 4. consider post-pyloric feeds IF residuals >500 as well as promotility agent per MD approval per protocol 5. DM education prior to discharge if appropriate, A1c 7.0 Addendum: 11/15/18 at [address] Amended: Links added.
[2018-11-15] MEDS: ondansetron/PF 4mg/2ml inj IV PRN (12:17)
--- NOTE | 2018-11-15 18:32 | NUR ---
Problems reprioritized. Patient report given, questions answered & plan of care reviewed with Joaquín JULIAN.
--- NOTE | 2018-11-15 18:36 | NUR ---
Patient in room ICU 2045. I have received report from Min JULIAN and had the opportunity to ask questions and assume patient care.
[2018-11-15] MEDS: pramipexole 0.25mg tablet NG SCH (20:19)
[2018-11-15] MEDS ORDERED: VANCOMYCIN LEVEL IV ONE (22:30)
[2018-11-16] VITALS (17 sets, daily range): BP systolic 87–106; BP diastolic 53–70
[2018-11-16] MEDS: ceftazidime 1000mg in D5W 50ml 50 ML IV SCH ×2 (01:44→08:21)
[2018-11-16] MEDS: mineral oil/petrolatum ophthal oint EACHEYE SCH ×3 (01:45→13:31)
[2018-11-16] MEDS: HYDROmorphone 1 mg/ml syringe IV PRN ×2 (01:53→07:25)
[2018-11-16] MEDS: ipratropium/albuterol 3ml nebule NEB SCH ×3 (03:15→11:14)
[2018-11-16 03:43] LABS: BASOPHILS # (AUTO) 0.1 X10'3 (0-0.2); BASOPHILS % (AUTO) 0.7 % (0-1); EOSINOPHILS # (AUTO) 0.4 X10'3 (0-0.9); EOSINOPHILS % (AUTO) 3.1 % (0-6); HEMOGLOBIN 8.7 g/dl (12.0-16.0); LYMPHOCYTES # (AUTO) 1.6 X10'3 (1.1-4.8); MEAN CORPUSCULAR HEMOGLOBIN 21.9 PG (27.0-31.0); MEAN CORPUSCULAR HGB CONC 31.1 g/dL (33.0-36.5); MEAN CORPUSCULAR VOLUME 70.5 FL (78-98); MEAN PLATELET VOLUME 8.9 FL (7.4-10.4); MONOCYTES % (AUTO) 8.3 % (2-12); NEUTROPHILS # (AUTO) 9.3 X10'3 (1.8-7.7); NEUTROPHILS % (AUTO) 74.9 % (42-75); PLATELET COUNT 253 X10'3 (140-440); RED BLOOD COUNT 3.97 X10'6 (4.20-5.60); RED CELL DISTRIBUTION WIDTH 25.6 % (11.5-14.5); WHITE BLOOD COUNT 12.4 X10'3 (4.5-11.0)
[2018-11-16] MEDS: dexmedetomidin/NS 400mcg/100ml 100 ML IV SCH ×2 (03:43→15:32)
[2018-11-16] MEDS: NORMAL SALINE IV SCH ×5 (03:43→15:33)
[2018-11-16] MEDS: EPOPROSTENOL IV SCH ×5 (03:43→15:33)
[2018-11-16 05:04] LABS: PARTIAL THROMBOPLASTIN TIME 30 SECONDS (22-32)
[2018-11-16 05:06] LABS: ABG BASE EXCESS 2.3 mmol/L (-2.0-3.0); ABG HCO3 26.9 mmol/L (22.0-26.0); ABG OXYGEN SATURATION 88.8 % (95-98); ABG PCO2 (T) 41.9 mmHg (35.0-45.0); ABG PH (T) 7.425 (7.350-7.450); ABG PO2 (T) 56.2 mmHg (83-108); ALLEN'S TEST Positive; FCOHb 0.3 % (0.5-1.5); FMetHb 0.3 % (0.3-1.12); FO2Hb 88.3 % (94-100); MINUTE VOLUME 8 L/min; PATIENT TEMPERATURE 36.9; PEEP 5 cm H2O; TOTAL HEMOGLOBIN 10.2 G/dl (12.0-16.0)
[2018-11-16 05:07] LABS: ALANINE AMINOTRANSFERASE 65 U/L (12-78); ALBUMIN 2.2 G/DL (3.4-5.0); ALBUMIN/GLOBULIN RATIO 0.6 (1.1-1.5); ALKALINE PHOSPHATASE 117 IU/L (46-116); ANION GAP 8 (8-16); ASPARTATE AMINO TRANSFERASE 30 U/L (10-37); BILIRUBIN,TOTAL 0.6 MG/DL (0.1-1.0); BLOOD UREA NITROGEN 36 MG/DL (7-18); CALCIUM 9.1 MG/DL (8.5-10.1); CHLORIDE 109 MMOL/L (99-107); GLUCOSE 119 MG/DL (70-104); MAGNESIUM 2.4 MG/DL (1.5-2.4); PHOSPHORUS 3.6 MG/DL (2.3-4.5); SODIUM 146 MMOL/L (135-145); TOTAL CARBON DIOXIDE 29.3 MMOL/L (24-32); TOTAL PROTEIN 6.2 G/DL (6.4-8.2); eGFR 76 ML/MIN
[2018-11-16 05:21] LABS: POTASSIUM 2.8 MMOL/L (3.5-5.1)
[2018-11-16] MEDS: potassium Cl 20mEq/100mL bag 100 ML IV PRN ×4 (05:25→09:28)
[2018-11-16] MEDS: furosemide 40mg/4ml inj IV SCH ×2 (06:00→11:44)
--- NOTE | 2018-11-16 06:28 | NUR ---
Patient in room ICU 2045. I have received report from Joaquín JULIAN and had the opportunity to ask questions and assume patient care.
--- NOTE | 2018-11-16 06:31 | NUR ---
Problems reprioritized. Patient report given, questions answered & plan of care reviewed with Nilton JULIAN.
--- NOTE | 2018-11-16 07:10 | NUR ---
Tran catheter found to be out of patient with balloon still inflated when assessing patient initially. Tran catheter to be replaced.
[2018-11-16] MEDS: sucralfate 1gm/10ml UD suspension PO SCH ×2 (07:24→11:44)
--- NOTE | 2018-11-16 07:30 | NUR ---
New 16 fr conce[address] catheter in place. Secured with adhesive securement device.
[2018-11-16] MEDS: LORazepam 1 MG tablet NG PRN (08:22)
[2018-11-16] MEDS: levoTHYROXINE 25mcg tablet NG SCH (08:22)
[2018-11-16] MEDS: rivaroxaban 20mg tablet NG SCH (08:23)
[2018-11-16] MEDS: allopurinol 100mg tablet NG SCH (08:23)
[2018-11-16] MEDS: montelukast 10mg tablet NG SCH (08:23)
[2018-11-16] MEDS: duloxetine 30mg CAPSULE.DR PO SCH (08:23)
[2018-11-16] MEDS: hydrocortisone 1% cream 28gm TP SCH (08:23)
[2018-11-16] MEDS: lactobacillus rhamnosus 10,000 MMU CELLS/CAPSULE NG SCH (08:23)
[2018-11-16] MEDS: gabapentin 300mg capsule NG SCH (08:23)
[2018-11-16] MEDS: citalopram 20mg tablet NG SCH (08:23)
--- NOTE | 2018-11-16 09:30 | NUR ---
Dr. Montes De Oca rounded on patient. Wants RT to try trach collar as tolerated today on patient. Addendum: 11/16/18 at 1325 by Nilton Duran RN Also received order for NG potassium Q12hr.
[2018-11-16] MEDS: vancomycin inj. 750 MG in normal saline 250ml IV soln 250 ML IV SCH (10:30)
[2018-11-16] MEDS: ondansetron/PF 4mg/2ml inj IV PRN (12:04)
[2018-11-16 12:07] LABS: CLARITY,URINE SLIGHTLY CLOUDY (Clear); COLOR,URINE YELLOW (Yellow); GLUCOSE, URINE NEGATIVE (Neg); KETONES,URINE NEGATIVE (Neg); LEUKOCYTE ESTERASE ,URINE NEGATIVE (Neg); NITRITES, URINE NEGATIVE (Neg); OCCULT BLOOD,URINE NEGATIVE (Neg); PH,URINE 5.5 (4.8-8.0); PROTEIN,URINE NEGATIVE (Neg); UROBILINOGEN,URINE 0.2 E.U/dL (0.2-1.0)
[2018-11-16 12:12] LABS: BACTERIA,URINE FEW /HPF (Neg); RBC,URINE 0-2 /HPF (0-2); UA COLLECTION TYPE FOLEY CATH; WBC,URINE 0-4 /HPF (0-4)
[2018-11-16 12:13] LABS: AMORPHOUS URATES 1+; MUCUS STRANDS FEW /LPF (Neg); SQUAMOUS EPITHELIAL CELL,UR FEW /LPF (FEW)
--- NOTE | 2018-11-16 13:20 | NUR ---
Antonella JULIAN from transfer center at [facility] called for a clinical update on patient from the full report that was given x2 days ago. States the report needs to be given to MD then transfer center will call [facility] with bed assignment. Antonella from [facility] also stated that transfer agreement needs to be sent to [facility] along with transfer packet.
--- NOTE | 2018-11-16 15:35 | NUR ---
Patient report given to Christi Motta RN, [facility]. Patient to be transported by air to [place]. Patient will continue to have drips of Flolan at 20 ng/kg/min and Precedex 0.4 mcg/kg/hr. Patient ventilator currently set at FiO2 of 45%, Peep of 5 and spontaneous/CPAP. Patient discharged with belongings which include cell phone, cell phone diagnostic imaging manager and eye glasses.
--- NOTE | 2018-11-16 15:45 | NUR ---
Patient discharged with belongings to [facility] to be transferred by air to [place].
[2018-11-16] MEDS ORDERED: POTASSIUM BICARBONATE/CIT AC 10 MEQ TABLET.EFF NG SCH (20:00)
== END 2018-11-16 15:56 | disposition short-term general hospital (02) | DRG 130 ==
LOC: ER 04:09 → ICU 2S 06:58 → UNDOADMIN 06:58 → CMPBEDREQ 07:10
PROVIDERS: ADMIT Internal Medicine Critical Care Medicine; ATTEND Internal Medicine Critical Care Medicine
PROC: 5A1955Z Respiratory Ventilation, Greater than 96 Consecutive Hours (ICD-10-PCS; 2018-11-04)
PROC: 4A023N6 Measurement of Cardiac Sampling and Pressure, Right Heart, Percutaneous Approach (ICD-10-PCS; 2018-11-04)
PROC: B2141ZZ Fluoroscopy of Right Heart using Low Osmolar Contrast (ICD-10-PCS; 2018-11-04)
PROC: 4A133B3 Monitoring of Arterial Pressure, Pulmonary, Percutaneous Approach (ICD-10-PCS; 2018-11-04)
PROC: 02HP32Z Insertion of Monitoring Device into Pulmonary Trunk, Percutaneous Approach (ICD-10-PCS; 2018-11-04)
PROC: 02HV33Z Insertion of Infusion Device into Superior Vena Cava, Percutaneous Approach (ICD-10-PCS; principal; 2018-11-07)
PROC: 4A02X4A Measurement of Cardiac Electrical Activity, Guidance, External Approach (ICD-10-PCS; 2018-11-07)
PROC: B548ZZA Ultrasonography of Superior Vena Cava, Guidance (ICD-10-PCS; 2018-11-07)
PROC: B32T1ZZ Computerized Tomography (CT Scan) of Left Pulmonary Artery using Low Osmolar Contrast (ICD-10-PCS; 2018-11-13)
PROC: B3201ZZ Computerized Tomography (CT Scan) of Thoracic Aorta using Low Osmolar Contrast (ICD-10-PCS; 2018-11-13)
PROC: B32S1ZZ Computerized Tomography (CT Scan) of Right Pulmonary Artery using Low Osmolar Contrast (ICD-10-PCS; 2018-11-13)
DX: J96.21 Acute and chronic respiratory failure with hypoxia (principal); I21.A1 Myocardial infarction type 2; E87.3 Alkalosis; B96.1 Klebsiella pneumoniae [K. pneumoniae] as the cause of diseases classified elsewhere; E11.9 Type 2 diabetes mellitus without complications; Z93.0 Tracheostomy status; E87.0 Hyperosmolality and hypernatremia; I27.20 Pulmonary hypertension, unspecified; I50.9 Heart failure, unspecified; E03.9 Hypothyroidism, unspecified; E87.6 Hypokalemia; G47.33 Obstructive sleep apnea (adult) (pediatric); K21.9 Gastro-esophageal reflux disease without esophagitis; J44.9 Chronic obstructive pulmonary disease, unspecified; N39.0 Urinary tract infection, site not specified; F32.9 Major depressive disorder, single episode, unspecified; G43.909 Migraine, unspecified, not intractable, without status migrainosus; F41.9 Anxiety disorder, unspecified; Z79.890 Hormone replacement therapy; Z79.899 Other long term (current) drug therapy; I25.2 Old myocardial infarction; Z86.711 Personal history of pulmonary embolism
CPT/HCPCS: 36415; 36569; 36600; 71045; 71275; 76937; 80053; 80202; 81001; 82803; 82810; 82948; 83036; 83605; 83735; 83880; 84100; 84132; 84484; 85018; 85025; 85610; 85730; 87040; 87070; 87077; 87081; 87088; 87186; 93005; 93306; 94002; 94003; 94640; 94760; 96365; 96375; 97110; 97161; 97530; 99291; A7521; C9113; G0378; J0456; J0692; J0713; J1120; J1170; J1250; J1325; J1644; J1815; J1940; J2020; J2060; J2250; J2405; J2765; J2920; J2930; J3010; J3370; J3480; J7050; J7070; Q9967

== ENCOUNTER 2018-11-23 10:57 | Inpatient (IN) | payer MEDICAID ==
[2018-11-23] VITALS (7 sets, daily range): BP systolic 92–117; BP diastolic 67–81
[~2018-11-23] VITALS: Ht 165.1 cm; Wt 99.1 kg
[~2018-11-23 10:57] MED LIST: ACET-2119 PO; ALB0.5UD IH; ALLO100T PO; ATR0.5NEB IH; DOCU283E2 RC; DULO-31 PO; ESCI5TAB PO; FURO40TA4 IV; GABA600T13 PO; HYDR-4383 PO; HYDR28CR14 TOP; INSU100C10 SQ; LACT1CAP65 PO; LEVO25TA2 PO; LINE600I8 IV; LORA1TAB PO; MONT10TA24 PO; ONDA4VIA6 IV; PANT-47 PO; POLY17PO10 PO; PRAM0.5T3 PO; RIVA10TA PO
[2018-11-23] MEDS: K, MAG and/or Phos replacement - Verify level? MC SCH (16:40)
[2018-11-23] MEDS ORDERED: ondansetron/PF 4mg/2ml inj IV PRN ×2 (16:40→17:45)
[2018-11-23] MEDS ORDERED: ipratropium/albuterol 3ml nebule NEB PRN (16:40)
[2018-11-23] MEDS ORDERED: potassium Cl 20mEq/100mL bag 100 ML IV PRN ×2 (16:40)
[2018-11-23] MEDS ORDERED: ipratropium 0.5 MG/2.5ML nebule NEB PRN (16:40)
[2018-11-23] MEDS ORDERED: potassium Cl 20 mEq SR tablet PO PRN ×2 (16:40)
--- NOTE | 2018-11-23 16:47 | NUR ---
Pt. to room 2040 from [place]. VSS. Pt. ambulated to bed. F/C dc'd. Pt. to [facility] for BM. Trach to mist collar 40%. Samir Rodriguez here at bedside.
[2018-11-23] MEDS ORDERED: thiamine 100mg tablet PO ONE (16:50)
[2018-11-23] MEDS ORDERED: ipratropium 0.5 MG/2.5ML nebule IH PRN (17:45)
--- NOTE | 2018-11-23 17:59 | NUR ---
Pt. has stated several times to Glenna Rodriguez, RT and RN that she "will not go on the vent".
[2018-11-23] MEDS: oxyCODONE IR 5mg (immed. release) tablet PO PRN ×2 (18:05→22:23)
--- NOTE | 2018-11-23 18:10 | NUR ---
Medicated with Oxycodone for 8/10 MERRITT. Dinner served to pt.
[2018-11-23] MEDS ORDERED: glucagon, human recombinant 1mg kit SUBCUT PRN (18:15)
[2018-11-23] MEDS ORDERED: MESSAGE TO PHARMACY PO ONE (18:15)
[2018-11-23] MEDS ORDERED: dextrose 50%-water 50ml dispensing syringe IV PRN ×2 (18:15)
[2018-11-23] MEDS ORDERED: insulin Lispro (HumaLOG) vial - multi-dose SQ SCH (18:15)
[2018-11-23] MEDS ORDERED: dextrose ORAL solution 15 GM/59 ML bottle PO PRN ×2 (18:15)
[2018-11-23] MEDS: acetaminophen 325mg tablet PO PRN (19:56)
[2018-11-23] MEDS: nystatin 15 GM powder TP SCH (20:00)
[2018-11-23] MEDS ORDERED: non-formulary drug (Lactobacillus Acidophilus (Probiotic) 1 CAP) PO SCH (20:00)
[2018-11-23] MEDS: chlorhexidine gluconate 15ml Cup****oral rinse MM SCH (20:00)
[2018-11-23] MEDS ORDERED: PRAMIPEXOLE DI HCL PO SCH (21:00)
[2018-11-23] MEDS: pramipexole 0.25mg tablet PO SCH (21:31)
[2018-11-23] MEDS: lactobacillus rhamnosus 10,000 MMU CELLS/CAPSULE PO SCH (21:32)
[2018-11-23] MEDS: temazepam 15mg capsule PO PRN (21:34)
[2018-11-24] VITALS (23 sets, daily range): BP systolic 91–120; BP diastolic 56–81
[2018-11-24] MEDS ORDERED: non-formulary drug (Gabapentin 1 TAB) PO SCH
[2018-11-24] MEDS: sildenafil citrate 20mg tablet PO SCH ×4 (01:52→23:54)
[2018-11-24] MEDS: gabapentin 300mg capsule PO SCH ×4 (01:52→23:54)
[2018-11-24] MEDS: nystatin 15 GM powder TP SCH ×2 (08:00→20:00)
[2018-11-24] MEDS: multi-vitamin w/minerals & ferrous gluconate 9 MG/15 ML oral LIQUID PO SCH (08:00)
[2018-11-24] MEDS: chlorhexidine gluconate 15ml Cup****oral rinse MM SCH ×2 (08:00→20:00)
[2018-11-24] MEDS ORDERED: DOCUSATE SODIUM 283 MG RC SCH (08:00)
[2018-11-24] MEDS: K, MAG and/or Phos replacement - Verify level? MC SCH (08:00)
[2018-11-24] MEDS: duloxetine 30mg CAPSULE.DR PO SCH (08:25)
[2018-11-24] MEDS: thiamine 100mg tablet PO SCH (08:25)
[2018-11-24] MEDS: citalopram 20mg tablet PO SCH (08:26)
[2018-11-24] MEDS: rivaroxaban 20mg tablet PO SCH (08:26)
[2018-11-24] MEDS: montelukast 10mg tablet PO SCH (08:26)
[2018-11-24] MEDS: levoTHYROXINE 25mcg tablet PO SCH (08:26)
[2018-11-24] MEDS: allopurinol 100mg tablet PO SCH (08:26)
[2018-11-24] MEDS: hydrOXYzine 25 MG tablet PO PRN (08:27)
[2018-11-24] MEDS: lactobacillus rhamnosus 10,000 MMU CELLS/CAPSULE PO SCH ×2 (08:27→20:28)
[2018-11-24 09:59] LABS: BASOPHILS # (AUTO) 0.1 X10'3 (0-0.2); BASOPHILS % (AUTO) 1.2 % (0-1); EOSINOPHILS # (AUTO) 0.6 X10'3 (0-0.9); EOSINOPHILS % (AUTO) 6.3 % (0-6); HEMATOCRIT 32.8 % (35.0-45.0); HEMOGLOBIN 10.2 g/dl (12.0-16.0); LYMPHOCYTES # (AUTO) 2.2 X10'3 (1.1-4.8); LYMPHOCYTES % (AUTO) 23.2 % (21-51); MEAN CORPUSCULAR HEMOGLOBIN 21.9 PG (27.0-31.0); MEAN CORPUSCULAR HGB CONC 31.2 g/dL (33.0-36.5); MEAN CORPUSCULAR VOLUME 70.1 FL (78-98); MEAN PLATELET VOLUME 7.7 FL (7.4-10.4); MONOCYTES # (AUTO) 0.7 X10'3 (0-0.9); MONOCYTES % (AUTO) 7.9 % (2-12); NEUTROPHILS # (AUTO) 5.7 X10'3 (1.8-7.7); NEUTROPHILS % (AUTO) 61.4 % (42-75); PLATELET COUNT 471 X10'3 (140-440); RED BLOOD COUNT 4.68 X10'6 (4.20-5.60); WHITE BLOOD COUNT 9.3 X10'3 (4.5-11.0)
[2018-11-24 10:19] LABS: ALANINE AMINOTRANSFERASE 38 U/L (12-78); ALBUMIN 2.9 G/DL (3.4-5.0); ALBUMIN/GLOBULIN RATIO 0.7 (1.1-1.5); ALKALINE PHOSPHATASE 90 IU/L (46-116); ANION GAP 7 (8-16); BILIRUBIN,TOTAL 0.7 MG/DL (0.1-1.0); BLOOD UREA NITROGEN 18 MG/DL (7-18); BUN/CREATININE RATIO 28.6 (6.6-38.0); CALCIUM 9.8 MG/DL (8.5-10.1); CHLORIDE 100 MMOL/L (99-107); CREATININE 0.63 MG/DL (0.40-0.90); GLUCOSE 93 MG/DL (70-104); SODIUM 138 MMOL/L (135-145); TOTAL CARBON DIOXIDE 30.6 MMOL/L (24-32); TOTAL PROTEIN 6.9 G/DL (6.4-8.2); eGFR > 90 ML/MIN
[2018-11-24 10:21] LABS: ASPARTATE AMINO TRANSFERASE 28 U/L (10-37); POTASSIUM 4.5 MMOL/L (3.5-5.1)
[2018-11-24 10:45] LABS: ANISOCYTOSIS 3+; MICROCYTOSIS 1+; PLATELET ESTIMATE NORMAL
[2018-11-24 10:46] LABS: LARGE PLATELETS FEW
[2018-11-24] MEDS: oxyCODONE IR 5mg (immed. release) tablet PO PRN ×3 (10:47→22:13)
[2018-11-24] MEDS: acetaminophen 325mg tablet PO PRN (11:53)
[2018-11-24] MEDS: pramipexole 0.25mg tablet PO SCH (20:28)
[2018-11-24] MEDS: temazepam 15mg capsule PO PRN (23:54)
[2018-11-25] VITALS (20 sets, daily range): BP systolic 89–113; BP diastolic 57–75
[2018-11-25 05:05] LABS: BASOPHILS # (AUTO) 0.1 X10'3 (0-0.2); BASOPHILS % (AUTO) 1.5 % (0-1); EOSINOPHILS # (AUTO) 0.5 X10'3 (0-0.9); EOSINOPHILS % (AUTO) 6.3 % (0-6); HEMATOCRIT 31.2 % (35.0-45.0); HEMOGLOBIN 9.8 g/dl (12.0-16.0); LYMPHOCYTES # (AUTO) 2.5 X10'3 (1.1-4.8); LYMPHOCYTES % (AUTO) 32.6 % (21-51); MEAN CORPUSCULAR HEMOGLOBIN 22.1 PG (27.0-31.0); MEAN CORPUSCULAR HGB CONC 31.4 g/dL (33.0-36.5); MEAN CORPUSCULAR VOLUME 70.4 FL (78-98); MONOCYTES # (AUTO) 0.7 X10'3 (0-0.9); MONOCYTES % (AUTO) 9.7 % (2-12); NEUTROPHILS # (AUTO) 3.8 X10'3 (1.8-7.7); NEUTROPHILS % (AUTO) 49.9 % (42-75); PLATELET COUNT 439 X10'3 (140-440); RED BLOOD COUNT 4.43 X10'6 (4.20-5.60); RED CELL DISTRIBUTION WIDTH 26.1 % (11.5-14.5); WHITE BLOOD COUNT 7.6 X10'3 (4.5-11.0)
[2018-11-25 05:13] LABS: ALANINE AMINOTRANSFERASE 34 U/L (12-78); ALBUMIN 2.8 G/DL (3.4-5.0); ALBUMIN/GLOBULIN RATIO 0.8 (1.1-1.5); ALKALINE PHOSPHATASE 83 IU/L (46-116); ANION GAP 4 (8-16); ASPARTATE AMINO TRANSFERASE 16 U/L (10-37); BILIRUBIN,TOTAL 0.5 MG/DL (0.1-1.0); BLOOD UREA NITROGEN 20 MG/DL (7-18); BUN/CREATININE RATIO 21.5 (6.6-38.0); CALCIUM 9.8 MG/DL (8.5-10.1); CHLORIDE 103 MMOL/L (99-107); CREATININE 0.93 MG/DL (0.40-0.90); GLUCOSE 87 MG/DL (70-104); POTASSIUM 4.2 MMOL/L (3.5-5.1); SODIUM 141 MMOL/L (135-145); TOTAL CARBON DIOXIDE 33.7 MMOL/L (24-32); TOTAL PROTEIN 6.5 G/DL (6.4-8.2); eGFR 64 ML/MIN
--- NOTE | 2018-11-25 06:25 | NUR ---
Problems reprioritized. Patient report given, questions answered & plan of care reviewed with ELIEL Larson.
[2018-11-25 06:58] LABS: ANISOCYTOSIS 3+; PLATELET ESTIMATE NORMAL; POLYCHROMASIA 1+
[2018-11-25 06:59] LABS: ELLIPTOCYTES FEW; HYPOCHROMASIA 2+
[2018-11-25 07:02] LABS: MICROCYTOSIS 1+
[2018-11-25 07:07] LABS: MAGNESIUM 2.1 MG/DL (1.5-2.4)
[2018-11-25] MEDS: acetaminophen 325mg tablet PO PRN ×3 (07:30→20:33)
[2018-11-25] MEDS: K, MAG and/or Phos replacement - Verify level? MC SCH (08:00)
[2018-11-25] MEDS: multi-vitamin w/minerals & ferrous gluconate 9 MG/15 ML oral LIQUID PO SCH (08:00)
[2018-11-25] MEDS: chlorhexidine gluconate 15ml Cup****oral rinse MM SCH ×2 (08:00→20:00)
[2018-11-25] MEDS: levoTHYROXINE 25mcg tablet PO SCH (08:09)
[2018-11-25] MEDS: duloxetine 30mg CAPSULE.DR PO SCH (08:10)
[2018-11-25] MEDS: sildenafil citrate 20mg tablet PO SCH ×3 (08:21→23:08)
[2018-11-25] MEDS: nystatin 15 GM powder TP SCH ×2 (08:21→20:00)
[2018-11-25] MEDS: montelukast 10mg tablet PO SCH (08:22)
[2018-11-25] MEDS: thiamine 100mg tablet PO SCH (08:22)
[2018-11-25] MEDS: rivaroxaban 20mg tablet PO SCH (08:22)
[2018-11-25] MEDS: allopurinol 100mg tablet PO SCH (08:22)
[2018-11-25] MEDS: citalopram 20mg tablet PO SCH (08:23)
[2018-11-25] MEDS: gabapentin 300mg capsule PO SCH ×3 (08:23→23:09)
[2018-11-25] MEDS: lactobacillus rhamnosus 10,000 MMU CELLS/CAPSULE PO SCH ×2 (08:23→20:31)
[2018-11-25] MEDS: oxyCODONE IR 5mg (immed. release) tablet PO PRN ×2 (14:13→20:33)
--- NOTE | 2018-11-25 18:47 | NUR ---
Patient in room ICU 2040. I have received report from Marsha ROUNDING MACHINE TENDER and had the opportunity to ask questions and assume patient care.
[2018-11-25] MEDS: pramipexole 0.25mg tablet PO SCH (20:31)
[2018-11-25] MEDS: hydrOXYzine 25 MG tablet PO PRN (21:29)
[2018-11-25] MEDS: temazepam 15mg capsule PO PRN (23:09)
[2018-11-26 02:00] VITALS: BP 91/49
[2018-11-26 05:40] LABS: BASOPHILS # (AUTO) 0.1 X10'3 (0-0.2); BASOPHILS % (AUTO) 1.6 % (0-1); EOSINOPHILS # (AUTO) 0.4 X10'3 (0-0.9); EOSINOPHILS % (AUTO) 6.9 % (0-6); HEMATOCRIT 31.3 % (35.0-45.0); HEMOGLOBIN 9.7 g/dl (12.0-16.0); LYMPHOCYTES # (AUTO) 2.2 X10'3 (1.1-4.8); LYMPHOCYTES % (AUTO) 34.2 % (21-51); MEAN CORPUSCULAR HGB CONC 30.9 g/dL (33.0-36.5); MEAN CORPUSCULAR VOLUME 71.2 FL (78-98); MONOCYTES # (AUTO) 0.7 X10'3 (0-0.9); MONOCYTES % (AUTO) 10.5 % (2-12); NEUTROPHILS % (AUTO) 46.8 % (42-75); PLATELET COUNT 406 X10'3 (140-440); WHITE BLOOD COUNT 6.4 X10'3 (4.5-11.0)
--- NOTE | 2018-11-26 06:00 | NUR ---
Patient in room PCU 3012. I have received report from ELIEL Patel and had the opportunity to ask questions and assume patient care.
[2018-11-26 06:04] LABS: ALANINE AMINOTRANSFERASE 32 U/L (12-78); ALBUMIN 2.7 G/DL (3.4-5.0); ALBUMIN/GLOBULIN RATIO 0.7 (1.1-1.5); ALKALINE PHOSPHATASE 79 IU/L (46-116); ANION GAP 4 (8-16); ASPARTATE AMINO TRANSFERASE 14 U/L (10-37); BILIRUBIN,TOTAL 0.4 MG/DL (0.1-1.0); BLOOD UREA NITROGEN 20 MG/DL (7-18); BUN/CREATININE RATIO 23.8 (6.6-38.0); CALCIUM 9.7 MG/DL (8.5-10.1); CHLORIDE 106 MMOL/L (99-107); CREATININE 0.84 MG/DL (0.40-0.90); GLUCOSE 92 MG/DL (70-104); POTASSIUM 4.2 MMOL/L (3.5-5.1); SODIUM 144 MMOL/L (135-145); TOTAL CARBON DIOXIDE 33.7 MMOL/L (24-32); TOTAL PROTEIN 6.4 G/DL (6.4-8.2); eGFR 71 ML/MIN
--- NOTE | 2018-11-26 06:37 | NUR ---
Problems reprioritized. Patient report given, questions answered & plan of care reviewed with Amanda JULIAN.
[2018-11-26 06:54] LABS: ANISOCYTOSIS 3+; MICROCYTOSIS 1+; PLATELET ESTIMATE NORMAL
[2018-11-26 06:55] LABS: LARGE PLATELETS FEW
[2018-11-26 07:19] VITALS: BP 97/73
[2018-11-26] MEDS: acetaminophen 325mg tablet PO PRN ×3 (07:50→23:05)
[2018-11-26] MEDS: oxyCODONE IR 5mg (immed. release) tablet PO PRN ×3 (07:50→21:00)
[2018-11-26] MEDS: nystatin 15 GM powder TP SCH ×2 (08:00→20:00)
[2018-11-26] MEDS: multi-vitamin w/minerals & ferrous gluconate 9 MG/15 ML oral LIQUID PO SCH (08:00)
[2018-11-26] MEDS: chlorhexidine gluconate 15ml Cup****oral rinse MM SCH ×2 (08:00→20:00)
[2018-11-26] MEDS: K, MAG and/or Phos replacement - Verify level? MC SCH (08:00)
[2018-11-26] MEDS: thiamine 100mg tablet PO SCH (08:09)
[2018-11-26] MEDS: levoTHYROXINE 25mcg tablet PO SCH (08:09)
[2018-11-26] MEDS: lactobacillus rhamnosus 10,000 MMU CELLS/CAPSULE PO SCH ×2 (08:09→20:55)
[2018-11-26] MEDS: montelukast 10mg tablet PO SCH (08:10)
[2018-11-26] MEDS: allopurinol 100mg tablet PO SCH (08:10)
[2018-11-26] MEDS: duloxetine 30mg CAPSULE.DR PO SCH (08:10)
[2018-11-26] MEDS: gabapentin 300mg capsule PO SCH ×3 (08:10→23:06)
[2018-11-26] MEDS: rivaroxaban 20mg tablet PO SCH (08:10)
[2018-11-26] MEDS: citalopram 20mg tablet PO SCH (08:10)
[2018-11-26] MEDS: sildenafil citrate 20mg tablet PO SCH ×3 (08:11→23:06)
[2018-11-26 11:00] VITALS: BP 158/78
[2018-11-26] MEDS: hydrOXYzine 25 MG tablet PO PRN ×2 (13:41→23:06)
[2018-11-26 15:00] VITALS: BP 103/71
[2018-11-26 18:00] VITALS: BP 100/68
--- NOTE | 2018-11-26 18:00 | NUR ---
Problems reprioritized. Patient report given, questions answered & plan of care reviewed with Joe RN.
--- NOTE | 2018-11-26 18:26 | NUR ---
Patient in room PCU 3012. I have received report from Khoi Cutler RN and had the opportunity to ask questions and assume patient care.
--- NOTE | 2018-11-26 19:35 | NUR ---
NOTIFIED called Rudy Waldron, pt has been on O2 for long period of time, order recieved for O2 order >92%.
[2018-11-26] MEDS: pramipexole 0.25mg tablet PO SCH (20:55)
[2018-11-26 22:00] VITALS: BP 101/78
[2018-11-27 02:00] VITALS: BP 110/76
[2018-11-27 06:00] VITALS: BP 110/77
--- NOTE | 2018-11-27 06:00 | NUR ---
Patient in room PCU 3012. I have received report from [facility] and had the opportunity to ask questions and assume patient care.
--- NOTE | 2018-11-27 06:00 | NUR ---
Patient in room PCU 3012. I have received report from Joe RN and had the opportunity to ask questions and assume patient care.
[2018-11-27 06:12] LABS: BASOPHILS # (AUTO) 0.1 X10'3 (0-0.2); BASOPHILS % (AUTO) 1.2 % (0-1); EOSINOPHILS # (AUTO) 0.4 X10'3 (0-0.9); EOSINOPHILS % (AUTO) 5.6 % (0-6); HEMATOCRIT 30.9 % (35.0-45.0); HEMOGLOBIN 9.7 g/dl (12.0-16.0); LYMPHOCYTES # (AUTO) 2.6 X10'3 (1.1-4.8); LYMPHOCYTES % (AUTO) 37.7 % (21-51); MEAN CORPUSCULAR HEMOGLOBIN 22.1 PG (27.0-31.0); MEAN CORPUSCULAR HGB CONC 31.3 g/dL (33.0-36.5); MEAN CORPUSCULAR VOLUME 70.7 FL (78-98); MEAN PLATELET VOLUME 8.1 FL (7.4-10.4); MONOCYTES # (AUTO) 0.6 X10'3 (0-0.9); MONOCYTES % (AUTO) 8.2 % (2-12); NEUTROPHILS # (AUTO) 3.3 X10'3 (1.8-7.7); NEUTROPHILS % (AUTO) 47.3 % (42-75); PLATELET COUNT 407 X10'3 (140-440); RED BLOOD COUNT 4.37 X10'6 (4.20-5.60); RED CELL DISTRIBUTION WIDTH 25.9 % (11.5-14.5); WHITE BLOOD COUNT 6.9 X10'3 (4.5-11.0)
[2018-11-27 06:20] LABS: ALANINE AMINOTRANSFERASE 31 U/L (12-78); ALBUMIN 2.7 G/DL (3.4-5.0); ALBUMIN/GLOBULIN RATIO 0.7 (1.1-1.5); ALKALINE PHOSPHATASE 84 IU/L (46-116); ANION GAP 7 (8-16); ASPARTATE AMINO TRANSFERASE 16 U/L (10-37); BILIRUBIN,TOTAL 0.4 MG/DL (0.1-1.0); BLOOD UREA NITROGEN 19 MG/DL (7-18); BUN/CREATININE RATIO 25.3 (6.6-38.0); CALCIUM 9.8 MG/DL (8.5-10.1); CHLORIDE 105 MMOL/L (99-107); CREATININE 0.75 MG/DL (0.40-0.90); GLUCOSE 84 MG/DL (70-104); POTASSIUM 4.4 MMOL/L (3.5-5.1); SODIUM 144 MMOL/L (135-145); TOTAL CARBON DIOXIDE 32.3 MMOL/L (24-32); TOTAL PROTEIN 6.4 G/DL (6.4-8.2); eGFR 81 ML/MIN
--- NOTE | 2018-11-27 06:35 | NUR ---
Problems reprioritized. Patient report given, questions answered & plan of care reviewed with Layla RN.
[2018-11-27] MEDS: K, MAG and/or Phos replacement - Verify level? MC SCH (07:12)
[2018-11-27] MEDS: nystatin 15 GM powder TP SCH (08:00)
[2018-11-27] MEDS: multi-vitamin w/minerals & ferrous gluconate 9 MG/15 ML oral LIQUID PO SCH (08:00)
[2018-11-27] MEDS: chlorhexidine gluconate 15ml Cup****oral rinse MM SCH (08:00)
[2018-11-27] MEDS: sildenafil citrate 20mg tablet PO SCH (08:45)
[2018-11-27] MEDS: rivaroxaban 20mg tablet PO SCH (08:46)
[2018-11-27] MEDS: lactobacillus rhamnosus 10,000 MMU CELLS/CAPSULE PO SCH (08:46)
[2018-11-27] MEDS: allopurinol 100mg tablet PO SCH (08:46)
[2018-11-27] MEDS: gabapentin 300mg capsule PO SCH (08:46)
[2018-11-27] MEDS: duloxetine 30mg CAPSULE.DR PO SCH (08:46)
[2018-11-27] MEDS: montelukast 10mg tablet PO SCH (08:47)
[2018-11-27] MEDS: acetaminophen 325mg tablet PO PRN (08:47)
[2018-11-27] MEDS: thiamine 100mg tablet PO SCH (08:47)
[2018-11-27] MEDS: oxyCODONE IR 5mg (immed. release) tablet PO PRN (08:47)
[2018-11-27] MEDS: citalopram 20mg tablet PO SCH (08:47)
[2018-11-27] MEDS: levoTHYROXINE 25mcg tablet PO SCH (08:48)
[2018-11-27 09:52] LABS: ANISOCYTOSIS 3+; LARGE PLATELETS FEW; MICROCYTOSIS 1+; PLATELET ESTIMATE NORMAL
[2018-11-27 09:53] LABS: ELLIPTOCYTES FEW
--- NOTE | 2018-11-27 10:27 | NUR ---
Student Medication Administration: For this medication-pass time frame, all medication were reviewed, dispensed, administered and documented per hospital policy by Pantera López [facility].
[2018-11-27 11:00] VITALS: BP 101/64
--- NOTE | 2018-11-27 11:22 | NUR ---
Student documentation: I have reviewed interventions, assessments performed and documented by Luis Miguel FOSTER [facility].
--- NOTE | 2018-11-27 11:51 | NUR ---
Pt refusing accucheck at this time.
[2018-11-27] MEDS ORDERED: IPRA3AMP9 NEB (12:18)
[2018-11-27] MEDS ORDERED: SILD20TA PO (12:18)
[2018-11-27] MEDS ORDERED: ATR0.5NEB NEB (12:18)
--- NOTE | 2018-11-27 14:05 | NUR ---
Problems reprioritized. Patient report given, questions answered & plan of care reviewed with Jewels JULIAN.
--- NOTE | 2018-11-27 14:30 | NUR ---
Pt discharged in stable condition. PICC removed, no complications. Pt belongings with patient and two family members to private vehicle. Tele box removed. Pt off unit. Prescriptions called to [facility] in [place], [place] per pt request.
== END 2018-11-27 14:30 | disposition home health service (06) | DRG 207 ==
LOC: ICU 2S 16:27 → PCU 3S 11-25 18:30
PROVIDERS: ADMIT Internal Medicine Critical Care Medicine
DX: I27.20 Pulmonary hypertension, unspecified (principal); J96.11 Chronic respiratory failure with hypoxia; Z93.0 Tracheostomy status; I50.810 Right heart failure, unspecified; F41.9 Anxiety disorder, unspecified; J44.9 Chronic obstructive pulmonary disease, unspecified; E03.9 Hypothyroidism, unspecified; G47.33 Obstructive sleep apnea (adult) (pediatric); E66.9 Obesity, unspecified; Z68.36 Body mass index [BMI] 36.0-36.9, adult; E11.9 Type 2 diabetes mellitus without complications
CPT/HCPCS: 36415; 71045; 80053; 82948; 83036; 83735; 84443; 85025; 87081; 94640; 94760; 97116; 97161; 97530; 99285; G0378; J1815; Z7610